=== PATIENT | female | born 1970 | race Caucasian/White ===

== ENCOUNTER 2018-07-06 10:42 | Inpatient (IN) | payer OTHER ==
[~2018-07-06] VITALS: Ht 180.3 cm; Wt 60.0 kg
[2018-07-06] MEDS ORDERED: ATILIQ PO (12:36)
[2018-07-06] MEDS ORDERED: ACET325T45 PO (12:36)
[2018-07-06] MEDS ORDERED: HYOS0.1297 SL (12:37)
[2018-07-06] MEDS ORDERED: LEVE500T8 PO (12:38)
[2018-07-06] MEDS ORDERED: DULO30CA47 PO (12:39)
[2018-07-06] MEDS ORDERED: SENN-120 PO (12:40)
[2018-07-06] MEDS ORDERED: FLUD0.1T10 PO (12:40)
[2018-07-06] MEDS ORDERED: FAMO40TA5 PO (12:42)
[2018-07-06] MEDS ORDERED: HYDR-4011 PO (12:42)
[2018-07-06] MEDS ORDERED: MORP10DI10 SL (12:44)
[2018-07-06] MEDS ORDERED: BISA10SU75 PR (12:46)
[2018-07-06] MEDS ORDERED: ONDA4TAB13 PO (12:46)
[2018-07-06] MEDS ORDERED: HYDROmorphONE 1 MG/ML SYG IV STA (13:14)
[2018-07-06] MEDS ORDERED: ONDANSETRON 4 MG INJ IV STA (13:14)
[2018-07-06] MEDS ORDERED: ACETAMINOPHEN 325 MG TAB PO PRN ×2 (13:30→16:00)
[2018-07-06] MEDS ORDERED: CEFTRIAXONE 1 GM/50 ML (PMX) 50 ML IVPB ONE (13:30)
[2018-07-06] MEDS ORDERED: ONDANSETRON 4 MG INJ IV PRN ×2 (13:30→16:00)
--- NOTE | 2018-07-06 13:44 | ERD ---
ER Documentation Chief Complaint Chief Complaint needs illeostomy bag currently nothing on the stoma HPI This is a 47-year-old female with known history of ovarian carcinoma with total abdominal hysterectomy who is undergoing chemotherapy with her clerical methods analyst oncologist at [facility] named Dr. Lui. The patient had recently been in [facility] for treatment of sepsis. The patient has an ileostomy and was discharged home with an ileostomy bag but she is currently living with her sister who indicates she does not know how to change the ileostomy site. The patient has been complaining of mild pain over the skin of the ileostomy site. She said no fevers or shaking or chills. She however has had frequency urgency and dysuria over the past several days. She had no shortness of breath. She denies a productive or nonproductive cough. The patient was in hospice which was provoked by the family as they stated they were unaware of what hospice entails. However the patient states she is DO NOT RESUSCITATE with comfort measures only. Family stated that the ileostomy was placed after the colostomy developed complications with the fistula. ROS All systems reviewed and are negative except as per history of present illness. Medications Home Meds Reported Medications Ondansetron Hcl* (Zofran*) 4 Mg Tab, 4 MG PO Q4H PRN for NAUSEA AND OR VOMITING, TAB 07/06/18 Bisacodyl* (Bisacodyl*) 10 Mg Supp, 10 MG NV Q72H PRN for NEEDED, SUPP 07/06/18 Morphine Sulfate* (Morphine* Liq) 10 Mg/0.5 Ml Disp.syrin, 0.25 ML SL Q4H PRN for NEEDED, ML 07/06/18 Hydrocodone/Acetaminophen ([place] 5-325 Tablet) 1 Each Tablet, 1 EACH PO Q4H PRN for NEEDED, TAB 07/06/18 Famotidine* (Famotidine*) 40 Mg Tablet, 40 MG PO Q7AM, #30 TAB 07/06/18 Fludrocortisone* (Fludrocortisone*) 0.1 Mg Tablet, 0.1 MG PO Q 9AM, TAB 07/06/18 Sennosides* (Senna Lax*) 8.6 Mg Tablet, 1 TAB PO BID, TAB Q 9AM & 9PM 07/06/18 Duloxetine Hcl* (Duloxetine Hcl*) 30 Mg Capsule.dr, 30 MG PO Q 9AM, #30 CAP 07/06/18 Levetiracetam* (Levetiracetam*) 500 Mg Tablet, 500 MG PO Q12H, TAB Q 9-AM & 9-PM 07/06/18 Hyoscyamine Sulfate* (Hyoscyamine Sulfate*) 0.125 Mg Tab.subl, 0.125 MG SL Q4H PRN for NEEDED, TAB 07/06/18 Lorazepam* (Ativan* Intensol) 2 Mg/Ml Soln, 0.5 MG PO Q4H PRN for ANXIETY, #1 BOTTLE 07/06/18 Acetaminophen* (Acetaminophen*) 325 Mg Tablet, 650 MG PO Q4H PRN for PAIN AND OR ELEVATED TEMP, #30 TAB 07/06/18 Allergies Allergies: Coded Allergies: No Known Allergy (Unverified , 07/06/18) Physical Exam Vitals Vital Signs Date Temp Pulse Resp B/P (MAP) Pulse Ox O2 O2 Flow FiO2 Time Delivery Rate 07/06/18 98.5 112 18 110/81 99 11:13 (91) Physical Exam Constitutional:Well-developed. Cachectic. HEENT:Normocephalic. Atraumatic.Pupils were equal round reactive to light. Very dry mucous membranes.No tonsillar exudates. Neck: No nuchal rigidity. No lymphadenopathy. No posterior cervical spine tenderness or step-offs. Respiratory: Not using accessory muscles of respiration.Lungs were clear to auscultation bilaterally. No rhonchi. No rales. No wheezing. Cardiovascular: Regular rate regular rhythm.No murmurs. No rubs were appreciated.S1, S2 normal. Distal pulses are palpable 2+ bilaterally. GI: Abdomen was soft. Colostomy site is overlying granulation tissue in the left lower quadrant. Ostomy site in the right lower quadrant is erythematous tender but no fluctuance no induration and no purulent drainage from the ostomy site.. Non Distended. No pulsatile abdominal masses or bruits. No rebound. No guarding. Bowel sounds were present and normal. Muscle skeletal: Alysis of the left upper and lower extremity from previous CVA. Full range of motion of the right upper and lower extremity. Skin: No petechia, no purpura. No lesions on the palms or the soles of the feet. No maculopapular rash. NEURO: Patient was alert, awake, orientated x3.No facial droop. Patient was too weak to ambulate.Speech had regular rate and rhythm. No focal neurological deficits. Result Diagram: 07/06/18 1215 07/06/18 1215 Results 24 hrs Laboratory Tests Test 07/06/18 12:15 White Blood Count 9.6 10^3/ul Red Blood Count 3.40 10^6/ul Hemoglobin 10.4 g/dl Hematocrit 32.2 % Mean Corpuscular Volume 94.7 fl Mean Corpuscular Hemoglobin 30.6 pg Mean Corpuscular Hemoglobin Concent 32.3 g/dl Red Cell Distribution Width 16.9 % Platelet Count 221 10^3/UL Mean Platelet Volume 10.1 fl Immature Granulocytes % 0.500 % Neutrophils % 74.0 % Lymphocytes % 12.5 % Monocytes % 9.6 % Eosinophils % 3.1 % Basophils % 0.3 % Nucleated Red Blood Cells % 0.0 /100WBC Immature Granulocytes # 0.050 10^3/ul Neutrophils # 7.1 10^3/ul Lymphocytes # 1.2 10^3/ul Monocytes # 0.9 10^3/ul Eosinophils # 0.3 10^3/ul Basophils # 0.0 10^3/ul Nucleated Red Blood Cells # 0.0 10^3/ul Prothrombin Time 12.9 Sec Prothrombin Time Ratio 1.0 INR International Normalized Ratio 0.96 Activated Partial Thromboplast Time 24.2 Sec Urine Color CYNDEE Urine Clarity CLOUDY Urine pH 5.0 Urine Specific [place] 1.018 Urine Ketones NEGATIVE mg/dL Urine Nitrite POSITIVE mg/dL Urine Bilirubin NEGATIVE mg/dL Urine Urobilinogen NEGATIVE mg/dL Urine Leukocyte Esterase 3+ Ignacia/ul Urine Microscopic RBC 23 /HPF Urine Microscopic WBC > 182 /HPF Urine Bacteria MODERATE /HPF Urine Mucus MODERATE /HPF Urine Hemoglobin 1+ mg/dL Urine Glucose NEGATIVE mg/dL Urine Total Protein 1+ mg/dl Sodium Level 138 mmol/L Potassium Level 4.3 mmol/L Chloride Level 105 mmol/L Carbon Dioxide Level 19 mmol/L Anion Gap 14 Blood Urea Nitrogen 27 mg/dl Creatinine 0.65 mg/dl Est Glomerular Filtrat Rate mL/min > 60 mL/min Glucose Level 113 mg/dl Calcium Level 11.3 mg/dl Total Bilirubin 0.7 mg/dl Direct Bilirubin 0.00 mg/dl Indirect Bilirubin 0.7 mg/dl Aspartate Amino Transf (AST/SGOT) 98 IU/L Alanine Aminotransferase (ALT/SGPT) 176 IU/L Alkaline Phosphatase 306 IU/L Troponin I < 0.012 ng/ml Total Protein 7.9 g/dl Albumin 4.3 g/dl Globulin 3.60 g/dl Albumin/Globulin Ratio 1.19 Amylase Level 56 U/L Lipase 118 U/L Current Medications Medications Dose Sig/Fritz Start Time Status Last (Trade) Ordered Route PRN Stop Time Admin Dose Reason Admin Ceftriaxone 50 ml @ ONCE ONCE 07/06/18 07/06/18 Sodium 100 mls/hr IVPB 13:30 13:22 07/06/18 13:59 1 mg ONCE STAT 07/06/18 DC 07/06/18 Hydromorphone IV 13:14 13:22 HCl 07/06/18 13:15 (Dilaudid) Ondansetron 4 mg ONCE STAT 07/06/18 DC 07/06/18 HCl (Zofran IV 13:14 13:21 Inj) 07/06/18 13:15 Procedures/MDM This is a 47-year-old female that presented to the emergency department with a history of DNR and ovarian cancer currently on chemotherapy. Patient was placed on cafeteria monitor continuous pulse oximetry and IV access was established by nursing staff. The patient was given intravenous Dilaudid and Zofran for analgesia control. I obtained a chest radiograph and there was no infiltrates no pneumothorax or pleural effusions. The patient had a urinary tract infection and was given IV ceftriaxone. The patient does have an indwelling Avalos catheter that has been present since May 24, 2018. The patient had no adriana re electrolyte abnormalities. I did obtain blood cultures and urine cultures. I obtained a CT scan with IV contrast for further evaluation into the patient's complex abdominal pain and surgical history. The patient's 2 sisters are at bedside had a lengthy discussion with the family we did state that the patient is DO NOT RESUSCITATE with comfort measures only. 12 Lead EKG tracing ordered and reviewed by myself showed: Normal sinus rhythm of 65 bpm and no arrhythmia. NV interval normal. QRS duration normal. No ST segment elevation No ST segment depression. No changes consistent with acute ischemia. The patient will be admitted to Dr. Vieira to the medical surgical floor in serious condition. I placed a consult to the wound care nurse who came to the bedside and talked the family how to properly place the ileostomy bag over the ostomy site Critical Care: Time: 45 minutes Treatments/Evaluations: Close monitoring and treatment of unstable vital signs, cardiorespiratory, and neurologic status, while maintaining tight balance of fluid, respiratory, and cardiac interventions. Time does not include performing any of the above billable procedures. Departure Diagnosis: Primary Impression: Urinary tract infection Urinary tract infection type: acute cystitis Hematuria presence: without hematuria Qualified Codes: N30.00 - Acute cystitis without hematuria Additional Impressions: Ovarian carcinoma Laterality: unspecified laterality Qualified Codes: C56.9 - Malignant neoplasm of unspecified ovary Failure to thrive Failure to thrive age range: in adult Qualified Codes: R62.7 - Adult failure to thrive Condition: Serious DIMAS MIRANDA MD Jul 06, 2018 13:43
[2018-07-06] MEDS ORDERED: DOCUSATE SODIUM 100 MG CAP PO PRN (16:00)
[2018-07-06] MEDS ORDERED: HYOSCYAMINE 0.125 MG SUBL TAB SL PRN (16:00)
[2018-07-06] MEDS ORDERED: ONDANSETRON 4 MG TAB PO PRN (16:00)
[2018-07-06] MEDS ORDERED: NACL 0.9% 3 ML SYG IV SCH (16:00)
[2018-07-06] MEDS ORDERED: ZOLPIDEM 5 MG TAB PO PRN (16:00)
[2018-07-06] MEDS ORDERED: LORAZEPAM 0.5 MG TAB PO PRN (16:00)
[2018-07-06] MEDS ORDERED: BISACODYL 10 MG SUPP PR PRN (16:00)
[2018-07-06 16:01] VITALS: BP 101/69; PULSE 110; RESP 18
[2018-07-06 16:36] VITALS: Ht 180.3 cm; Wt 60.0 kg
[2018-07-06] MEDS: SOD CHLORIDE 0.9% 1,000 ML IV SCH (16:46)
--- NOTE | 2018-07-06 17:05 | HP ---
Date/Time of Note Date/Time of Note DATE: 07/06/18 TIME: 16:59 Assessment/Plan VTE Prophylaxis Pharmacological prophylaxis: NA/contraindicated Pharm contraindication: other Lines/Catheters IV Catheter Type (from Nrsg): manju cath Assessment/Plan Hospital Course 1. Abdominal pain secondary to skin excoriation from leakage of ostomy site Wound care nurse consultation appreciated, ostomy has been adjusted and wound care recommendations will be followed Family would like to ultimately take the patient back home and would like to learn proper ostomy care from wound care nurse Pain control 2. UTI secondary to chronic Avalos catheter Empiric Rocephin Follow-up on urine culture 3. History of ovarian cancer status post SLIME/BSO Patient was receiving chemotherapy but was stopped after she had a stroke Patient was on hospice care at home and will likely return to home with hospice 4. History of CVA No acute issues 5. Normocytic anemia likely secondary chronic disease monitor 6. Transaminitis Monitor Prophylaxis: No Lovenox or heparin secondary to skin excoriations in the abdomen Result Diagram: 07/06/18 1215 07/06/18 1215 Results 24hrs Laboratory Tests Test 07/06/18 12:15 White Blood Count 9.6 Red Blood Count 3.40 L Hemoglobin 10.4 L Hematocrit 32.2 L Mean Corpuscular Volume 94.7 Mean Corpuscular Hemoglobin 30.6 Mean Corpuscular Hemoglobin Concent 32.3 Red Cell Distribution Width 16.9 H Platelet Count 221 Mean Platelet Volume 10.1 Immature Granulocytes % 0.500 H Neutrophils % 74.0 Lymphocytes % 12.5 L Monocytes % 9.6 Eosinophils % 3.1 Basophils % 0.3 Nucleated Red Blood Cells % 0.0 Immature Granulocytes # 0.050 H Neutrophils # 7.1 Lymphocytes # 1.2 Monocytes # 0.9 Eosinophils # 0.3 Basophils # 0.0 Nucleated Red Blood Cells # 0.0 Prothrombin Time 12.9 Prothrombin Time Ratio 1.0 INR International Normalized Ratio 0.96 Activated Partial Thromboplast Time 24.2 Urine Color CYNDEE Urine Clarity CLOUDY A Urine pH 5.0 Urine Specific [place] 1.018 Urine Ketones NEGATIVE Urine Nitrite POSITIVE A Urine Bilirubin NEGATIVE Urine Urobilinogen NEGATIVE Urine Leukocyte Esterase 3+ H Urine Microscopic RBC 23 H Urine Microscopic WBC > 182 H Urine Bacteria MODERATE Urine Mucus MODERATE Urine Hemoglobin 1+ H Urine Glucose NEGATIVE Urine Total Protein 1+ H Sodium Level 138 Potassium Level 4.3 Chloride Level 105 Carbon Dioxide Level 19 L Anion Gap 14 H Blood Urea Nitrogen 27 H Creatinine 0.65 Est Glomerular Filtrat Rate mL/min > 60 Glucose Level 113 Calcium Level 11.3 H Total Bilirubin 0.7 Direct Bilirubin 0.00 Indirect Bilirubin 0.7 Aspartate Amino Transf (AST/SGOT) 98 H Alanine Aminotransferase (ALT/SGPT) 176 H Alkaline Phosphatase 306 H Troponin I < 0.012 Total Protein 7.9 Albumin 4.3 Globulin 3.60 H Albumin/Globulin Ratio 1.19 Amylase Level 56 Lipase 118 HPI/ROS Admit Date/Time Admit Date/Time Jul 06, 2018 at 16:25 Hx of Present Illness Patient is a 47-year-old female with history of ovarian cancer status post SLIME/BSO as well as chemotherapy which was stopped after patient had a CVA. 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 Patient was recently discharged home with hospice care but patient had significant leakage around the ostomy with excoriation of the skin. Patient was brought in after patient reported significant pain of the skin. Patient does have a chronic Avalos catheter UA is positive. Patient denies any fevers or chills, most history is obtained from patient sister who is bedside. KATIE Poor historian PMH/Family/Social Past Medical History Ovarian cancer, CVA Medications Current Medications Sodium Chloride 1,000 ml @ 100 mls/hr Q10H IV Last administered on 07/06/18at 16:46; Admin Dose 100 MLS/HR; Start 07/06/18 at 15:59 IV Flush (NS 3 ml) 3 ml PER PROTOCOL IV ; Start 07/06/18 at 16:00 Ondansetron HCl (Zofran Inj) 4 mg Q6H PRN IV NAUSEA/VOMITING; Start 07/06/18 at 16:00 Acetaminophen (Tylenol Tab) 650 mg Q6H PRN PO .PAIN 1-3 OR TEMP; Start 07/06/18 at 16:00 Acetaminophen/ Hydrocodone Bitart ([place] (5/325)) 1 tab Q6H PRN PO .MOD PAIN 4- 6; Start 07/06/18 at 16:00 Morphine Sulfate (morphine) 2 mg Q4H PRN IV .SEVERE PAIN 7-10; Start 07/06/18 at 16:00 Docusate Sodium (Colace) 100 mg Q12H PRN PO .CONSTIPATION; Start 07/06/18 at 16:00 Zolpidem Tartrate (Ambien) 5 mg QHS PRN PO .INSOMNIA; Start 07/06/18 at 16:00 Enoxaparin Sodium (Lovenox) 40 mg DAILY SC ; Start 07/07/18 at 09:00 Ceftriaxone Sodium 50 ml @ 100 mls/hr Q24H IVPB ; Start 07/06/18 at 16:00 Bisacodyl (Dulcolax Supp) 10 mg Q72H PRN IN NEEDED; Start 07/06/18 at 16:00 Duloxetine HCl (Cymbalta) 30 mg DAILY PO ; Start 07/07/18 at 09:00 Famotidine (Pepcid) 40 mg DAILY PO ; Start 07/07/18 at 09:00 Fludrocortisone Acetate (Florinef) 0.1 mg DAILY PO ; Start 07/07/18 at 09:00 Hyoscyamine (Levsin (Sl)) 0.125 mg Q4H PRN SL NEEDED; Start 07/06/18 at 16:00 Levetiracetam (Keppra) 500 mg Q12 PO ; Start 07/06/18 at 17:00 Lorazepam (Ativan) 0.5 mg Q4H PRN PO ANXIETY; Start 07/06/18 at 16:00 Ondansetron HCl (Zofran Tab) 4 mg Q4H PRN PO NAUSEA AND/OR VOMITING; Start 07/06/18 at 16:00 Senna (Senokot) 1 tab BID PO ; Start 07/06/18 at 21:00 Coded Allergies: No Known Allergy (Unverified , 07/06/18) Past Surgical History SLIME/BSO, ileostomy after colovaginal fistula Family History Significant Family History: no pertinent family hx Social History Alcohol Use: none Smoking Status: Never smoker Drug Use: none Exam/Review of Systems Vital Signs Vitals Vital Signs Date Temp Pulse Resp B/P (MAP) Pulse Ox O2 O2 Flow FiO2 Time Delivery Rate 07/06/18 98.0 110 18 101/69 95 16:01 (80) 07/06/18 Room Air 14:21 Exam Constitutional: alert Respiratory: clear to auscultation Cardiovascular: regular rate and rhythm Gastrointestinal: soft; No distended Musculoskeletal: nl extremities to inspection Skin: other (Excoriation around the ostomy site) KILO LONG Jul 06, 2018 17:05
[2018-07-06] MEDS: CEFTRIAXONE 1 GM/50 ML (PMX) 50 ML IVPB SCH (17:14)
[2018-07-06] MEDS: LEVETIRACETAM 500 MG TAB PO SCH (17:15)
[2018-07-06] MEDS: morphine 2 MG INJ IV PRN ×2 (17:15→21:34)
[2018-07-06 19:54] VITALS: BP 102/65; PULSE 99; RESP 20
[2018-07-06] MEDS: SENNA TAB PO SCH (20:44)
[2018-07-06] MEDS: HYDROCODONE/APAP (5/325) TAB PO PRN (20:45)
[2018-07-06] MEDS: NYSTATIN 30 GM POWDER BTL TOP SCH (20:45)
[2018-07-07 01:55] VITALS: BP 100/68; PULSE 88; RESP 17
[2018-07-07] MEDS: SOD CHLORIDE 0.9% 1,000 ML IV SCH ×3 (03:39→21:59)
[2018-07-07] MEDS: morphine 2 MG INJ IV PRN ×4 (04:43→19:31)
[2018-07-07] MEDS ORDERED: MAGNESIUM SULFATE 4 GM/100 ML 100 ML IVPB ONE ×2 (07:00→11:00)
[2018-07-07 07:13] VITALS: BP 112/67; PULSE 77; RESP 18
[2018-07-07] MEDS: SENNA TAB PO SCH ×2 (08:26→20:14)
[2018-07-07] MEDS: FLUDROCORTISONE 0.1 MG TAB PO SCH (08:26)
[2018-07-07] MEDS: DULOXETINE 30 MG CAP DR PO SCH (08:26)
[2018-07-07] MEDS: FAMOTIDINE 20 MG TAB PO SCH (08:26)
[2018-07-07] MEDS: LEVETIRACETAM 500 MG TAB PO SCH ×2 (08:26→20:14)
[2018-07-07] MEDS: NYSTATIN 30 GM POWDER BTL TOP SCH ×2 (08:30→20:15)
[2018-07-07] MEDS ORDERED: ENOXAPARIN 40 MG/0.4 ML SYG SC SCH (09:00)
[2018-07-07] MEDS: HYDROCODONE/APAP (5/325) TAB PO PRN ×2 (11:40→21:41)
--- NOTE | 2018-07-07 12:25 | PN ---
Date/Time of Note Date/Time of Note DATE: 07/07/18 TIME: 12:23 Assessment/Plan VTE Prophylaxis Risk score (from Ns)>0 risk: 5 SCD applied (from Ns): Yes Pharmacological prophylaxis: NA/contraindicated Pharm contraindication: other Lines/Catheters [facility]from [facility]a-cath Assessment/Plan Hospital Course 1. Abdominal pain secondary to cellulitis and skin excoriation from leakage of ostomy site Wound care nurse consultation appreciated, ostomy has been adjusted and wound care recommendations will be followed Family would like to ultimately take the patient back home and would like to learn proper ostomy care from wound care nurse Pain control 2. UTI secondary to chronic Avalos catheter Empiric Rocephin Follow-up on urine culture 3. History of ovarian cancer status post SLIME/BSO Patient was receiving chemotherapy but was stopped after she had a stroke Patient was on hospice care at home and will likely return to home with hospice 4. History of CVA No acute issues 5. Normocytic anemia likely secondary chronic disease monitor 6. Transaminitis Monitor Prophylaxis: No Lovenox or heparin secondary to skin excoriations in the abdomen Result Diagram: 07/07/18 0439 07/07/18 0439 Results 24hrs Laboratory Tests Test 07/07/18 04:39 White Blood Count 7.6 # Red Blood Count 3.16 L Hemoglobin 9.6 L Hematocrit 29.6 L Mean Corpuscular Volume 93.7 Mean Corpuscular Hemoglobin 30.4 Mean Corpuscular Hemoglobin Concent 32.4 Red Cell Distribution Width 16.4 H Platelet Count 196 Mean Platelet Volume 10.2 Immature Granulocytes % 0.500 H Neutrophils % 63.3 Lymphocytes % 18.2 Monocytes % 11.3 H Eosinophils % 6.3 Basophils % 0.4 Nucleated Red Blood Cells % 0.0 Immature Granulocytes # 0.040 H Neutrophils # 4.8 Lymphocytes # 1.4 Monocytes # 0.9 Eosinophils # 0.5 Basophils # 0.0 Nucleated Red Blood Cells # 0.0 Sodium Level 137 Potassium Level 3.8 Chloride Level 105 Carbon Dioxide Level 20 L Anion Gap 12 Blood Urea Nitrogen 24 H Creatinine 0.51 Est Glomerular Filtrat Rate mL/min > 60 Glucose Level 100 Hemoglobin A1c 4.6 Calcium Level 10.6 H Phosphorus Level 4.0 Magnesium Level 0.9 *L Total Bilirubin 0.4 Direct Bilirubin 0.00 Indirect Bilirubin 0.4 Aspartate Amino Transf (AST/SGOT) 93 H Alanine Aminotransferase (ALT/SGPT) 182 H Alkaline Phosphatase 253 H Total Protein 7.3 Albumin 3.7 Globulin 3.60 H Albumin/Globulin Ratio 1.02 Subjective 24 Hr Interval Summary Gastrointestinal: pain Exam/Review of Systems Exam Vitals Vital Signs Date Temp Pulse Resp B/P (MAP) Pulse Ox O2 O2 Flow FiO2 Time Delivery Rate 07/07/18 98.1 77 18 112/67 98 07:13 (82) 07/06/18 Room Air 14:21 Intake and Output 07/06/18 07/06/18 07/07/18 1515:00 23:00 07:00 IntakeIntake Total 150 ml 1100 ml OutputOutput Total 700 ml 180 ml BalanceBalance -550 ml 920 ml Constitutional: alert Respiratory: clear to auscultation Cardiovascular: regular rate and rhythm Gastrointestinal: soft; No distended Musculoskeletal: nl extremities to inspection Results Results 24hrs Laboratory Tests Test 07/07/18 04:39 White Blood Count 7.6 # Red Blood Count 3.16 L Hemoglobin 9.6 L Hematocrit 29.6 L Mean Corpuscular Volume 93.7 Mean Corpuscular Hemoglobin 30.4 Mean Corpuscular Hemoglobin Concent 32.4 Red Cell Distribution Width 16.4 H Platelet Count 196 Mean Platelet Volume 10.2 Immature Granulocytes % 0.500 H Neutrophils % 63.3 Lymphocytes % 18.2 Monocytes % 11.3 H Eosinophils % 6.3 Basophils % 0.4 Nucleated Red Blood Cells % 0.0 Immature Granulocytes # 0.040 H Neutrophils # 4.8 Lymphocytes # 1.4 Monocytes # 0.9 Eosinophils # 0.5 Basophils # 0.0 Nucleated Red Blood Cells # 0.0 Sodium Level 137 Potassium Level 3.8 Chloride Level 105 Carbon Dioxide Level 20 L Anion Gap 12 Blood Urea Nitrogen 24 H Creatinine 0.51 Est Glomerular Filtrat Rate mL/min > 60 Glucose Level 100 Hemoglobin A1c 4.6 Calcium Level 10.6 H Phosphorus Level 4.0 Magnesium Level 0.9 *L Total Bilirubin 0.4 Direct Bilirubin 0.00 Indirect Bilirubin 0.4 Aspartate Amino Transf (AST/SGOT) 93 H Alanine Aminotransferase (ALT/SGPT) 182 H Alkaline Phosphatase 253 H Total Protein 7.3 Albumin 3.7 Globulin 3.60 H Albumin/Globulin Ratio 1.02 Medications Medication Current Medications Sodium Chloride 1,000 ml @ 100 mls/hr Q10H IV Last administered on 07/07/18at 03:39; Admin Dose 100 MLS/HR; Start 07/06/18 at 15:59 IV Flush (NS 3 ml) 3 ml PER PROTOCOL IV ; Start 07/06/18 at 16:00 Ondansetron HCl (Zofran Inj) 4 mg Q6H PRN IV NAUSEA/VOMITING; Start 07/06/18 at 16:00 Acetaminophen (Tylenol Tab) 650 mg Q6H PRN PO .PAIN 1-3 OR TEMP; Start 07/06/18 at 16:00 Acetaminophen/ Hydrocodone Bitart ([place] (5/325)) 1 tab Q6H PRN PO .MOD PAIN 4- 6 Last administered on 07/07/18at 11:40; Admin Dose 1 TAB; Start 07/06/18 at 16:00 Morphine Sulfate (morphine) 2 mg Q4H PRN IV .SEVERE PAIN 7-10 Last administered on 07/07/18at 10:17; Admin Dose 2 MG; Start 07/06/18 at 16:00 Docusate Sodium (Colace) 100 mg Q12H PRN PO .CONSTIPATION; Start 07/06/18 at 16:00 Zolpidem Tartrate (Ambien) 5 mg QHS PRN PO .INSOMNIA; Start 07/06/18 at 16:00 Ceftriaxone Sodium 50 ml @ 100 mls/hr Q24H IVPB Last administered on 07/06/18at 17:14; Admin Dose 100 MLS/HR; Start 07/06/18 at 16:00 Bisacodyl (Dulcolax Supp) 10 mg Q72H PRN [place] NEEDED; Start 07/06/18 at 16:00 Duloxetine HCl (Cymbalta) 30 mg DAILY PO Last administered on 07/07/18 08:26; Admin Dose 30 MG; Start 07/07/18 at 09:00 Famotidine (Pepcid) 40 mg DAILY PO Last administered on 07/07/18 08:26; Admin Dose 40 MG; Start 07/07/18 at 09:00 Fludrocortisone Acetate (Florinef) 0.1 mg DAILY PO Last administered on 07/07/18 08:26; Admin Dose 0.1 MG; Start 07/07/18 at 09:00 Hyoscyamine (Levsin (Sl)) 0.125 mg Q4H PRN SL NEEDED; Start 07/06/18 at 16:00 Levetiracetam (Keppra) 500 mg Q12 PO Last administered on 07/07/18at 08:26; Admin Dose 500 MG; Start 07/06/18 at 17:00 Lorazepam (Ativan) 0.5 mg Q4H PRN PO ANXIETY; Start 07/06/18 at 16:00 Ondansetron HCl (Zofran Tab) 4 mg Q4H PRN PO NAUSEA AND/OR VOMITING; Start 07/06/18 at 16:00 Senna (Senokot) 1 tab BID PO Last administered on 07/07/18at 08:26; Admin Dose 1 TAB; Start 07/06/18 at 21:00 Nystatin (Nystatin Powder) 1 applic BID TOP Last administered on 07/07/18at 08:30; Admin Dose 1 APPLIC; Start 07/06/18 at 21:00 Magnesium Sulfate 100 ml @ 25 mls/hr ONCE ONCE IVPB ; Start 07/07/18 at 11:00; Stop 07/07/18 at 14:59 KILO LONG Jul 07, 2018 12:25
[2018-07-07 13:15] VITALS: BP 107/64; PULSE 80; RESP 18
[2018-07-07] MEDS: CEFTRIAXONE 1 GM/50 ML (PMX) 50 ML IVPB SCH (16:33)
[2018-07-07 20:30] VITALS: BP 110/66; PULSE 82; RESP 19
[2018-07-07] MEDS ORDERED: DIPHENHYDRAMINE 25 MG CAP PO PRN (21:30)
[2018-07-08] MEDS: morphine 2 MG INJ IV PRN ×4 (01:31→20:10)
[2018-07-08] MEDS: SOD CHLORIDE 0.9% 1,000 ML IV SCH ×3 (01:32→12:06)
[2018-07-08 02:35] VITALS: BP 101/65; PULSE 80; RESP 18
[2018-07-08 07:33] VITALS: BP 104/68; PULSE 82; RESP 18
[2018-07-08] MEDS: LEVETIRACETAM 500 MG TAB PO SCH ×2 (09:03→20:10)
[2018-07-08] MEDS: DULOXETINE 30 MG CAP DR PO SCH (09:03)
[2018-07-08] MEDS: SENNA TAB PO SCH ×2 (09:03→20:10)
[2018-07-08] MEDS: FLUDROCORTISONE 0.1 MG TAB PO SCH (09:03)
[2018-07-08] MEDS: FAMOTIDINE 20 MG TAB PO SCH (09:03)
[2018-07-08] MEDS: NYSTATIN 30 GM POWDER BTL TOP SCH ×2 (09:04→19:54)
[2018-07-08 14:00] VITALS: BP 106/66; PULSE 80; RESP 18
[2018-07-08] MEDS: CEFTRIAXONE 1 GM/50 ML (PMX) 50 ML IVPB SCH (16:35)
[2018-07-08] MEDS: HYDROCODONE/APAP (5/325) TAB PO PRN (16:37)
--- NOTE | 2018-07-08 17:20 | PN ---
Date/Time of Note Date/Time of Note DATE: 07/08/18 TIME: 17:14 Assessment/Plan VTE Prophylaxis Risk score (from Ns)>0 risk: 8 SCD applied (from Ns): Yes Pharmacological prophylaxis: NA/contraindicated Pharm contraindication: other Assessment/Plan Hospital Course 1. Abdominal pain secondary to cellulitis and skin excoriation from leakage of ileostomy site Wound care nurse consultation appreciated, ostomy has been adjusted and wound care recommendations will be followed Family would like to ultimately take the patient back home and would like to learn proper ostomy care from wound care nurse Wound care nurse Ángela to be back on Monday to give further guidance of ostomy care to patient's sisters Ileostomy was just done 2 weeks ago and family was unable to manage at home Pain control 2. UTI secondary to chronic Avalos catheter Continue Rocephin Urine culture noted 3. History of ovarian cancer status post SLIME/BSO Patient was receiving chemotherapy but was stopped after she had a stroke Family would like to continue chemotherapy and will follow-up with outpatient oncologist 4. History of CVA No acute issues 5. 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 Transaminitis Monitor 7. Normocytic anemia likely secondary chronic disease monitor Prophylaxis: No Lovenox or heparin secondary to skin excoriations in the abdomen DC planning: Family would like to speak to the wound care nurse Ángela for advice on proper ostomy care, anticipate DC to home Monday evening or Monday Result Diagram: 07/07/18 0439 07/07/189 Results 24hrs Laboratory Tests Test 07/07/18 20:24 Magnesium Level 3.1 #H Subjective 24 Hr Interval Summary Constitutional: no complaints Exam/Review of Systems Exam Vitals Vital Signs Date Temp Pulse Resp B/P (MAP) Pulse Ox O2 O2 Flow FiO2 Time Delivery Rate 07/08/18 98.0 82 18 104/68 94 Room Air 07:33 (80) Intake and Output 07/07/18 07/07/18 07/08/18 1414:59 22:59 06:59 IntakeIntake Total 100 ml 450 ml 850 ml OutputOutput Total 500 ml BalanceBalance 100 ml 450 ml 350 ml Constitutional: alert, oriented Respiratory: clear to auscultation Cardiovascular: regular rate and rhythm Gastrointestinal: soft; No distended Musculoskeletal: nl extremities to inspection Results Results 24hrs Laboratory Tests Test 07/07/18 20:24 Magnesium Level 3.1 #H Medications Medication Current Medications Sodium Chloride 1,000 ml @ 100 mls/hr Q10H IV Last administered on 07/08/18at 12:06; Admin Dose 100 MLS/HR; Start 07/06/18 at 15:59 IV Flush (NS 3 ml) 3 ml PER PROTOCOL IV ; Start 07/06/18 at 16:00 Ondansetron HCl (Zofran Inj) 4 mg Q6H PRN IV NAUSEA/VOMITING; Start 07/06/18 at 16:00 Acetaminophen (Tylenol Tab) 650 mg Q6H PRN PO .PAIN 1-3 OR TEMP; Start 07/06/18 at 16:00 Acetaminophen/ Hydrocodone Bitart ([place] (5/325)) 1 tab Q6H PRN PO .MOD PAIN 4- 6 Last administered on 07/08/18at 16:37; Admin Dose 1 TAB; Start 07/06/18 at 16:00 Morphine Sulfate (morphine) 2 mg Q4H PRN IV .SEVERE PAIN 7-10 Last administered on 07/08/18 14:29; Admin Dose 2 MG; Start 07/06/18 at 16:00 Docusate Sodium (Colace) 100 mg Q12H PRN PO .CONSTIPATION; Start 07/06/18 at 16:00 Zolpidem Tartrate (Ambien) 5 mg QHS PRN PO .INSOMNIA; Start 07/06/18 at 16:00 Ceftriaxone Sodium 50 ml @ 100 mls/hr Q24H IVPB Last administered on 07/08/18 16:35; Admin Dose 100 MLS/HR; Start 07/06/18 at 16:00 Bisacodyl (Dulcolax Supp) 10 mg Q72H PRN [place] NEEDED; Start 07/06/18 at 16:00 Duloxetine HCl (Cymbalta) 30 mg DAILY PO Last administered on 07/08/18 09:03; Admin Dose 30 MG; Start 07/07/18 at 09:00 Famotidine (Pepcid) 40 mg DAILY PO Last administered on 07/08/18 09:03; Admin Dose 40 MG; Start 07/07/18 at 09:00 Fludrocortisone Acetate (Florinef) 0.1 mg DAILY PO Last administered on 07/08/18 09:03; Admin Dose 0.1 MG; Start 07/07/18 at 09:00 Hyoscyamine (Levsin (Sl)) 0.125 mg Q4H PRN SL NEEDED; Start 07/06/18 at 16:00 Levetiracetam (Keppra) 500 mg Q12 PO Last administered on 07/08/18 09:03; Admin Dose 500 MG; Start 07/06/18 at 17:00 Lorazepam (Ativan) 0.5 mg Q4H PRN PO ANXIETY; Start 07/06/18 at 16:00 Ondansetron HCl (Zofran Tab) 4 mg Q4H PRN PO NAUSEA AND/OR VOMITING; Start 07/06/18 at 16:00 Senna (Senokot) 1 tab BID PO Last administered on 07/08/18 09:03; Admin Dose 1 TAB; Start 07/06/18 at 21:00 Nystatin (Nystatin Powder) 1 applic BID TOP Last administered on 07/08/18 09:04; Admin Dose 1 APPLIC; Start 07/06/18 at 21:00 Diphenhydramine HCl (Benadryl) 25 mg Q6H PRN PO ITCHING Last administered on 07/07/18 21:38; Admin Dose 25 MG; Start 07/07/18 at 21:30; Stop 07/08/18 at 21:30 KILO LONG Jul 08, 2018 17:20
[2018-07-08 19:17] VITALS: BP 103/64; PULSE 83; RESP 16
[2018-07-09] MEDS: morphine 2 MG INJ IV PRN ×4 (00:13→18:44)
[2018-07-09] MEDS: SOD CHLORIDE 0.9% 1,000 ML IV SCH ×2 (00:13→09:32)
[2018-07-09 01:42] VITALS: BP 102/63; PULSE 82; RESP 16
[2018-07-09 07:59] VITALS: BP 110/57; PULSE 78; RESP 18
[2018-07-09] MEDS: DULOXETINE 30 MG CAP DR PO SCH (09:25)
[2018-07-09] MEDS: FLUDROCORTISONE 0.1 MG TAB PO SCH (09:25)
[2018-07-09] MEDS: FAMOTIDINE 20 MG TAB PO SCH (09:27)
[2018-07-09] MEDS: LEVETIRACETAM 500 MG TAB PO SCH ×2 (09:28→20:14)
[2018-07-09] MEDS: SENNA TAB PO SCH ×2 (09:28→20:14)
[2018-07-09] MEDS: HYDROCODONE/APAP (5/325) TAB PO PRN (09:30)
[2018-07-09] MEDS: NYSTATIN 30 GM POWDER BTL TOP SCH ×2 (13:25→20:15)
--- NOTE | 2018-07-09 13:57 | PN ---
Date/Time of Note Date/Time of Note DATE: 07/09/18 TIME: 13:55 Assessment/Plan VTE Prophylaxis Risk score (from Nsg)>0 risk: 3 SCD applied (from Nsg): Yes Pharmacological prophylaxis: heparin Lines/Catheters IV Catheter Type (from Nrsg): port Urinary Cath still in place: Yes Reason Cath still needed: urinary retention Assessment/Plan Hospital Course 1. Abdominal pain secondary to skin excoriation from leakage of ileostomy site Wound care nurse consultation appreciated, ostomy has been adjusted and wound care recommendations will be followed Family would like to ultimately take the patient back home and would like to learn proper ostomy care from wound care nurse Wound care nurse Ángela to give further guidance of ostomy care to patient's sisters Ileostomy was just done 2 weeks ago and family was unable to manage at home Pain control 2. UTI secondary to chronic Avalos catheter s/p Rocephin Urine culture noted 3. History of ovarian cancer status post SLIME/BSO Patient was receiving chemotherapy but was stopped after she had a stroke Family would like to continue chemotherapy and will follow-up with outpatient oncologist 4. History of CVA No acute issues 5. 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 Transaminitis Monitor 7. Normocytic anemia likely secondary chronic disease monitor Prophylaxis: No Lovenox or heparin secondary to skin excoriations in the abdomen DC planning: Family would like to speak to the wound care nurse Ángela for advice on proper ostomy care, anticipate DC to home Monday evening or Monday Result Diagram: 07/07/18 0439 07/07/18 0439 Subjective 24 Hr Interval Summary Free Text/Dictation Still tremendous pain from skin excoriation around ostomy Exam/Review of Systems Exam Vitals Vital Signs Date Temp Pulse Resp B/P (MAP) Pulse Ox O2 O2 Flow FiO2 Time Delivery Rate 07/09/18 97.8 78 18 110/57 96 Room Air 07:59 (74) Intake and Output 07/08/18 07/08/18 07/09/18 1515:00 23:00 07:00 IntakeIntake Total 1200 ml 600 ml 1100 ml OutputOutput Total 550 ml 1000 ml BalanceBalance 1200 ml 50 ml 100 ml Exam Alert orteinted Calm Cachectic Ostomy sites with skin excoriations Medications Medication Current Medications IV Flush (NS 3 ml) 3 ml PER PROTOCOL IV ; Start 07/06/18 at 16:00 Ondansetron HCl (Zofran Inj) 4 mg Q6H PRN IV NAUSEA/VOMITING; Start 07/06/18 at 16:00 Acetaminophen (Tylenol Tab) 650 mg Q6H PRN PO .PAIN 1-3 OR TEMP Last administered on 07/09/18at 12:02; Admin Dose 650 MG; Start 07/06/18 at 16:00 Acetaminophen/ Hydrocodone Bitart ([place] (5/325)) 1 tab Q6H PRN PO .MOD PAIN 4- 6 Last administered on 07/09/18 09:30; Admin Dose 1 TAB; Start 07/06/18 at 16:00 Morphine Sulfate (morphine) 2 mg Q4H PRN IV .SEVERE PAIN 7-10 Last administered on 07/09/18at 13:11; Admin Dose 2 MG; Start 07/06/18 at 16:00 Docusate Sodium (Colace) 100 mg Q12H PRN PO .CONSTIPATION; Start 07/06/18 at 16:00 Zolpidem Tartrate (Ambien) 5 mg QHS PRN PO .INSOMNIA; Start 07/06/18 at 16:00 Bisacodyl (Dulcolax Supp) 10 mg Q72H PRN [place] NEEDED; Start 07/06/18 at 16:00 Duloxetine HCl (Cymbalta) 30 mg DAILY PO Last administered on 07/09/18 09:25; Admin Dose 30 MG; Start 07/07/18 at 09:00 Famotidine (Pepcid) 40 mg DAILY PO Last administered on 07/09/18 09:27; Admin Dose 40 MG; Start 07/07/18 at 09:00 Fludrocortisone Acetate (Florinef) 0.1 mg DAILY PO Last administered on 07/09/18 09:25; Admin Dose 0.1 MG; Start 07/07/18 at 09:00 Hyoscyamine (Levsin (Sl)) 0.125 mg Q4H PRN SL NEEDED; Start 07/06/18 at 16:00 Levetiracetam (Keppra) 500 mg Q12 PO Last administered on 07/09/18 09:28; Admin Dose 500 MG; Start 07/06/18 at 17:00 Lorazepam (Ativan) 0.5 mg Q4H PRN PO ANXIETY Last administered on 07/09/18 12:02; Admin Dose 0.5 MG; Start 07/06/18 at 16:00 Ondansetron HCl (Zofran Tab) 4 mg Q4H PRN PO NAUSEA AND/OR VOMITING; Start 07/06/18 at 16:00 Senna (Senokot) 1 tab BID PO Last administered on 07/09/18 09:28; Admin Dose 1 TAB; Start 07/06/18 at 21:00 Nystatin (Nystatin Powder) 1 applic BID TOP Last administered on 07/09/18 13:25 ; Admin Dose 1 APPLIC; Start 07/06/18 at 21:00 LASHANDA FORTUNE MD Jul 09, 2018 13:57
[2018-07-09 14:00] VITALS: BP 108/60; PULSE 72; RESP 18
[2018-07-09 19:36] VITALS: BP 107/65; PULSE 94; RESP 16
[2018-07-09] MEDS: DIPHENHYDRAMINE 50 MG CAP PO PRN (20:14)
[2018-07-10 01:47] VITALS: BP 118/57; PULSE 97; RESP 16
[2018-07-10 08:12] VITALS: BP 120/60; PULSE 92; RESP 18
[2018-07-10] MEDS: DULOXETINE 30 MG CAP DR PO SCH (09:03)
[2018-07-10] MEDS: FLUDROCORTISONE 0.1 MG TAB PO SCH (09:04)
[2018-07-10] MEDS: LEVETIRACETAM 500 MG TAB PO SCH ×2 (09:04→20:15)
[2018-07-10] MEDS: FAMOTIDINE 20 MG TAB PO SCH (09:04)
[2018-07-10] MEDS: SENNA TAB PO SCH ×2 (09:05→20:15)
[2018-07-10] MEDS: DIPHENHYDRAMINE 50 MG CAP PO PRN ×2 (09:13→18:11)
[2018-07-10] MEDS: NYSTATIN 30 GM POWDER BTL TOP SCH ×2 (09:52→20:20)
[2018-07-10 14:52] VITALS: BP 109/61; PULSE 61; RESP 18
--- NOTE | 2018-07-10 16:53 | PN ---
Date/Time of Note Date/Time of Note DATE: 07/10/18 TIME: 16:52 Assessment/Plan VTE Prophylaxis Risk score (from Nsg)>0 risk: 4 SCD applied (from Nsg): Yes Pharmacological prophylaxis: heparin Lines/Catheters IV Catheter Type (from Nrsg): PORT A CATH Urinary Cath still in place: Yes Reason Cath still needed: urinary retention Assessment/Plan Hospital Course 1. Abdominal pain secondary to skin excoriation from leakage of ileostomy site Wound care nurse consultation appreciated, ostomy has been adjusted and wound care recommendations will be followed Family would like to ultimately take the patient back home and would like to learn proper ostomy care from wound care nurse Wound care nurse Ángela to give further guidance of ostomy care to patient's sisters Ileostomy was just done 2 weeks ago and family was unable to manage at home Pain control 2. UTI secondary to chronic Avalos catheter s/p Rocephin Urine culture noted 3. History of ovarian cancer status post SLIME/BSO Patient was receiving chemotherapy but was stopped after she had a stroke Family would like to continue chemotherapy and will follow-up with outpatient oncologist 4. History of CVA No acute issues 5. 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 Transaminitis Monitor 7. Normocytic anemia likely secondary chronic disease monitor Prophylaxis: No Lovenox or heparin secondary to skin excoriations in the abdomen DC planning: Family would like to speak to the wound care nurse Ángela for advice on proper ostomy care, anticipate DC to home Monday evening or Monday Result Diagram: 07/07/18 0439 07/07/189 Subjective 24 Hr Interval Summary Free Text/Dictation Pain improved a bit Ostomy care provided, skin care provided I discussed patient's unfortunate case at length with her sisters Exam/Review of Systems Exam Vitals Vital Signs Date Temp Pulse Resp B/P (MAP) Pulse Ox O2 O2 Flow FiO2 Time Delivery Rate 07/10/18 98.0 61 18 109/61 98 Room Air 14:52 (77) Intake and Output 07/09/18 07/09/18 07/10/18 1414:59 22:59 06:59 IntakeIntake Total 570 ml 220 ml 240 ml OutputOutput Total 40 ml 1550 ml 650 ml BalanceBalance 530 ml -1330 ml -410 ml Medications Medication Current Medications IV Flush (NS 3 ml) 3 ml PER PROTOCOL IV ; Start 07/06/18 at 16:00 Ondansetron HCl (Zofran Inj) 4 mg Q6H PRN IV NAUSEA/VOMITING; Start 07/06/18 at 16:00 Acetaminophen (Tylenol Tab) 650 mg Q6H PRN PO .PAIN 1-3 OR TEMP Last administer ed on 07/09/18at 12:02; Admin Dose 650 MG; Start 07/06/18 at 16:00 Acetaminophen/ Hydrocodone Bitart ([place] (5/325)) 1 tab Q6H PRN PO .MOD PAIN 4- 6 Last administered on 07/09/18 09:30; Admin Dose 1 TAB; Start 07/06/18 at 16:00 Morphine Sulfate (morphine) 2 mg Q4H PRN IV .SEVERE PAIN 7-10 Last administered on 07/09/18at 18:44; Admin Dose 2 MG; Start 07/06/18 at 16:00 Docusate Sodium (Colace) 100 mg Q12H PRN PO .CONSTIPATION; Start 07/06/18 at 16:00 Zolpidem Tartrate (Ambien) 5 mg QHS PRN PO .INSOMNIA; Start 07/06/18 at 16:00 Bisacodyl (Dulcolax Supp) 10 mg Q72H PRN [place] NEEDED; Start 07/06/18 at 16:00 Duloxetine HCl (Cymbalta) 30 mg DAILY PO Last administered on 07/10/18 09:03; Admin Dose 30 MG; Start 07/07/18 at 09:00 Famotidine (Pepcid) 40 mg DAILY PO Last administered on 07/10/18 09:04; Admin Dose 40 MG; Start 07/07/18 at 09:00 Fludrocortisone Acetate (Florinef) 0.1 mg DAILY PO Last administered on 07/10/18 09:04; Admin Dose 0.1 MG; Start 07/07/18 at 09:00 Hyoscyamine (Levsin (Sl)) 0.125 mg Q4H PRN SL NEEDED; Start 07/06/18 at 16:00 Levetiracetam (Keppra) 500 mg Q12 PO Last administered on 07/10/18 09:04; Admin Dose 500 MG; Start 07/06/18 at 17:00 Lorazepam (Ativan) 0.5 mg Q4H PRN PO ANXIETY Last administered on 07/09/18 12:02; Admin Dose 0.5 MG; Start 07/06/18 at 16:00 Ondansetron HCl (Zofran Tab) 4 mg Q4H PRN PO NAUSEA AND/OR VOMITING; Start 07/06/18 at 16:00 Senna (Senokot) 1 tab BID PO Last administered on 07/10/18 09:05; Admin Dose 1 TAB; Start 07/06/18 at 21:00 Nystatin (Nystatin Powder) 1 applic BID TOP Last administered on 07/10/18 09:52; Admin Dose 1 APPLIC; Start 07/06/18 at 21:00 Diphenhydramine HCl (Benadryl) 50 mg Q6H PRN PO ITCHING Last administered on 07/10/18 09:13; Admin Dose 50 MG; Start 07/09/18 at 20:00 LASHANDA FORTUNE MD Jul 10, 2018 16:53
[2018-07-10] MEDS: morphine 2 MG INJ IV PRN (20:16)
[2018-07-10 20:39] VITALS: BP 105/79; PULSE 101; RESP 19
[2018-07-10] MEDS: HYDROCODONE/APAP (5/325) TAB PO PRN (23:02)
[2018-07-11] MEDS: DIPHENHYDRAMINE 50 MG CAP PO PRN ×2 (00:07→06:32)
[2018-07-11 02:24] VITALS: BP 100/63; PULSE 89; RESP 18
[2018-07-11] MEDS: morphine 2 MG INJ IV PRN ×2 (05:08→23:42)
[2018-07-11 08:09] VITALS: BP 108/68; PULSE 96; RESP 16
[2018-07-11] MEDS: DULOXETINE 30 MG CAP DR PO SCH (10:20)
[2018-07-11] MEDS: LEVETIRACETAM 500 MG TAB PO SCH ×2 (10:20→21:37)
[2018-07-11] MEDS: SENNA TAB PO SCH ×2 (10:21→21:37)
[2018-07-11] MEDS: FLUDROCORTISONE 0.1 MG TAB PO SCH (10:21)
[2018-07-11] MEDS: NYSTATIN 30 GM POWDER BTL TOP SCH ×2 (10:22→21:40)
[2018-07-11] MEDS: FAMOTIDINE 20 MG TAB PO SCH (10:22)
[2018-07-11 14:14] VITALS: BP 106/67; PULSE 97; RESP 16
[2018-07-11] MEDS ORDERED: SOD CHLORIDE 0.9% 1,000 ML IV ONE (15:00)
--- NOTE | 2018-07-11 17:15 | PN ---
Date/Time of Note Date/Time of Note DATE: 07/11/18 TIME: 17:15 Assessment/Plan VTE Prophylaxis Risk score (from Nsg)>0 risk: 5 SCD applied (from Nsg): Yes Pharmacological prophylaxis: heparin Lines/Catheters IV Catheter Type (from Nrsg): PAC Urinary Cath still in place: Yes Reason Cath still needed: urinary retention Assessment/Plan Hospital Course 1. Abdominal pain secondary to skin excoriation from leakage of ileostomy site Wound care nurse consultation appreciated, ostomy has been adjusted and wound care recommendations will be followed Family would like to ultimately take the patient back home and would like to learn proper ostomy care from wound care nurse Wound care nurse Ángela to give further guidance of ostomy care to patient's sisters Ileostomy was just done 2 weeks ago and family was unable to manage at home Pain control 2. UTI secondary to chronic Avalos catheter s/p Rocephin Urine culture noted 3. History of ovarian cancer status post SLIME/BSO Patient was receiving chemotherapy but was stopped after she had a stroke Family would like to continue chemotherapy and will follow-up with outpatient oncologist 4. History of CVA No acute issues 5. 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 Transaminitis Monitor 7. Normocytic anemia likely secondary chronic disease monitor Prophylaxis: No Lovenox or heparin secondary to skin excoriations in the abdomen DC planning: Family would like to speak to the wound care nurse Ángela for advice on proper ostomy care, anticipate DC to SNF Result Diagram: 07/11/18 1619 07/11/18 1619 Results 24hrs Laboratory Tests Test 07/11/18 16:19 White Blood Count 7.7 Red Blood Count 3.12 L Hemoglobin 9.6 L Hematocrit 28.9 L Mean Corpuscular Volume 92.6 Mean Corpuscular Hemoglobin 30.8 Mean Corpuscular Hemoglobin Concent 33.2 Red Cell Distribution Width 15.5 H Platelet Count 229 Mean Platelet Volume 9.8 Immature Granulocytes % 0.700 H Neutrophils % 69.8 Lymphocytes % 18.0 Monocytes % 7.6 Eosinophils % 3.5 Basophils % 0.4 Nucleated Red Blood Cells % 0.0 Immature Granulocytes # 0.050 H Neutrophils # 5.4 Lymphocytes # 1.4 Monocytes # 0.6 Eosinophils # 0.3 Basophils # 0.0 Nucleated Red Blood Cells # 0.0 Sodium Level 139 Potassium Level 3.4 L Chloride Level 110 Carbon Dioxide Level 19 L Anion Gap 10 Blood Urea Nitrogen 15 Creatinine 0.47 Est Glomerular Filtrat Rate mL/min > 60 Glucose Level 104 Calcium Level 10.2 Subjective 24 Hr Interval Summary Free Text/Dictation Still with pain Avalos is leaking. Wants it removed Exam/Review of Systems Exam Vitals Vital Signs Date Temp Pulse Resp B/P (MAP) Pulse Ox O2 O2 Flow FiO2 Time Delivery Rate 07/11/18 97.9 97 16 106/67 98 Room Air 14:14 (80) Intake and Output 07/10/18 07/10/18 07/11/18 1515:00 23:00 07:00 IntakeIntake Total 240 ml 545 ml 100 ml OutputOutput Total 1000 ml 550 ml BalanceBalance 240 ml -455 ml -450 ml Constitutional: alert, oriented, well developed Psych: no complaints, nl mood/affect Head: normocephalic, atraumatic Eyes: nl conjunctiva, EOMI, nl lids, nl sclera, PERRL ENMT: nl external ears & nose, nl lips & teeth, nl nasal mucosa & septum Neck: supple, non-tender Respiratory: clear to auscultation, normal air movement Cardiovascular: regular rate and rhythm, nl pulses Gastrointestinal: soft, nl liver, spleen, non-tender Musculoskeletal: nl extremities to inspection, nl gait and stance Extremities: normal pulses Neurological: [employer] II-XII intact, nl mental status, nl speech, nl strength Skin: nl turgor; No rash or lesions Lymph: nl lymph nodes Results Results 24hrs Laboratory Tests Test 07/11/18 16:19 White Blood Count 7.7 Red Blood Count 3.12 L Hemoglobin 9.6 L Hematocrit 28.9 L Mean Corpuscular Volume 92.6 Mean Corpuscular Hemoglobin 30.8 Mean Corpuscular Hemoglobin Concent 33.2 Red Cell Distribution Width 15.5 H Platelet Count 229 Mean Platelet Volume 9.8 Immature Granulocytes % 0.700 H Neutrophils % 69.8 Lymphocytes % 18.0 Monocytes % 7.6 Eosinophils % 3.5 Basophils % 0.4 Nucleated Red Blood Cells % 0.0 Immature Granulocytes # 0.050 H Neutrophils # 5.4 Lymphocytes # 1.4 Monocytes # 0.6 Eosinophils # 0.3 Basophils # 0.0 Nucleated Red Blood Cells # 0.0 Sodium Level 139 Potassium Level 3.4 L Chloride Level 110 Carbon Dioxide Level 19 L Anion Gap 10 Blood Urea Nitrogen 15 Creatinine 0.47 Est Glomerular Filtrat Rate mL/min > 60 Glucose Level 104 Calcium Level 10.2 Medications Medication Current Medications IV Flush (NS 3 ml) 3 ml PER PROTOCOL IV ; Start 07/06/18 at 16:00 Ondansetron HCl (Zofran Inj) 4 mg Q6H PRN IV NAUSEA/VOMITING; Start 07/06/18 at 16:00 Acetaminophen (Tylenol Tab) 650 mg Q6H PRN PO .PAIN 1-3 OR TEMP Last administered on 07/09/18at 12:02; Admin Dose 650 MG; Start 07/06/18 at 16:00 Acetaminophen/ Hydrocodone Bitart ([place] (5/325)) 1 tab Q6H PRN PO .MOD PAIN 4- 6 Last administered on 07/10/18at 23:02; Admin Dose 1 TAB; Start 07/06/18 at 16:00 Morphine Sulfate (morphine) 2 mg Q4H PRN IV .SEVERE PAIN 7-10 Last administered on 07/11/18 05:08; Admin Dose 2 MG; Start 07/06/18 at 16:00 Docusate Sodium (Colace) 100 mg Q12H PRN PO .CONSTIPATION; Start 07/06/18 at 16:00 Zolpidem Tartrate (Ambien) 5 mg QHS PRN PO .INSOMNIA; Start 07/06/18 at 16:00 Bisacodyl (Dulcolax Supp) 10 mg Q72H PRN [place] NEEDED; Start 07/06/18 at 16:00 Duloxetine HCl (Cymbalta) 30 mg DAILY PO Last administered on 07/11/18 10:20; Admin Dose 30 MG; Start 07/07/18 at 09:00 Famotidine (Pepcid) 40 mg DAILY PO Last administered on 07/11/18 10:22; Admin Dose 40 MG; Start 07/07/18 at 09:00 Fludrocortisone Acetate (Florinef) 0.1 mg DAILY PO Last administered on 07/11/18 t 10:21; Admin Dose 0.1 MG; Start 07/07/18 at 09:00 Hyoscyamine (Levsin (Sl)) 0.125 mg Q4H PRN SL NEEDED; Start 07/06/18 at 16:00 Levetiracetam (Keppra) 500 mg Q12 PO Last administered on 07/11/18 10:20; Admin Dose 500 MG; Start 07/06/18 at 17:00 Lorazepam (Ativan) 0.5 mg Q4H PRN PO ANXIETY Last administered on 07/09/18 12:02; Admin Dose 0.5 MG; Start 07/06/18 at 16:00 Ondansetron HCl (Zofran Tab) 4 mg Q4H PRN PO NAUSEA AND/OR VOMITING; Start 07/06/18 at 16:00 Senna (Senokot) 1 tab BID PO Last administered on 07/11/18 10:21; Admin Dose 1 TAB; Start 07/06/18 at 21:00 Nystatin (Nystatin Powder) 1 applic BID TOP Last administered on 07/11/18 10:22; Admin Dose 1 APPLIC; Start 07/06/18 at 21:00 Diphenhydramine HCl (Benadryl) 50 mg Q6H PRN PO ITCHING Last administered on 07/11/18 06:32; Admin Dose 50 MG; Start 07/09/18 at 20:00 LASHANDA FORTUNE MD Jul 11, 2018 17:15
[2018-07-11 20:30] VITALS: BP 109/69; PULSE 83; RESP 19
[2018-07-11] MEDS: morphine (ER) 15 MG TAB PO SCH (22:30)
[2018-07-12 02:35] VITALS: BP 107/67; PULSE 94; RESP 18
[2018-07-12] MEDS: morphine (ER) 15 MG TAB PO SCH ×3 (05:53→22:23)
[2018-07-12 08:30] VITALS: BP 105/63; PULSE 85; RESP 18
[2018-07-12] MEDS: NYSTATIN 30 GM POWDER BTL TOP SCH ×2 (08:53→20:56)
[2018-07-12] MEDS: SENNA TAB PO SCH ×2 (08:53→20:56)
[2018-07-12] MEDS: FLUDROCORTISONE 0.1 MG TAB PO SCH (08:53)
[2018-07-12] MEDS: FAMOTIDINE 20 MG TAB PO SCH (08:53)
[2018-07-12] MEDS: DULOXETINE 30 MG CAP DR PO SCH (08:53)
[2018-07-12] MEDS: LEVETIRACETAM 500 MG TAB PO SCH ×2 (08:53→20:56)
[2018-07-12] MEDS: DIPHENHYDRAMINE 50 MG CAP PO PRN ×3 (08:57→23:15)
--- NOTE | 2018-07-12 16:35 | PN ---
Date/Time of Note Date/Time of Note DATE: 07/12/18 TIME: 16:33 Assessment/Plan VTE Prophylaxis Risk score (from Nsg)>0 risk: 7 SCD applied (from Nsg): Yes Pharmacological prophylaxis: heparin Lines/Catheters IV Catheter Type (from Nrsg): PORT-A-CATH Urinary Cath still in place: No Assessment/Plan Hospital Course 47 yo female with ovarian cancer, s/p ileostomy for obstruction presents with pain at ostomy site Ostomy pain from skin excoriation: - Pain control, MS Contin added - Wond care History of ovarian cancer status post SLIME/BSO Patient was receiving chemotherapy but was stopped after she had a stroke Family would like to continue chemotherapy and will follow-up with outpatient oncologist 4. History of CVA No acute issues 5. 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 Transaminitis Monitor 7. Normocytic anemia likely secondary chronic disease monitor Prophylaxis: No Lovenox or heparin secondary to skin excoriations in the abdomen DC planning: anticipate DC to SNF Result Diagram: 07/11/18 1619 07/11/18 1619 Subjective 24 Hr Interval Summary Free Text/Dictation Pain improved on MS Britni Working on dc planning Exam/Review of Systems Exam Vitals Vital Signs Date Temp Pulse Resp B/P (MAP) Pulse Ox O2 O2 Flow FiO2 Time Delivery Rate 07/12/18 98.3 85 18 105/63 100 08:30 (77) 07/11/18 Room Air 14:14 Intake and Output 07/11/18 07/11/18 07/12/18 1515:00 23:00 07:00 IntakeIntake Total 1000 ml OutputOutput Total 375 ml 200 ml BalanceBalance -375 ml 800 ml Constitutional: alert, oriented, well developed Psych: no complaints, nl mood/affect Head: normocephalic, atraumatic Eyes: nl conjunctiva, EOMI, nl lids, nl sclera, PERRL ENMT: nl external ears & nose, nl lips & teeth, nl nasal mucosa & septum Neck: supple, non-tender Respiratory: clear to auscultation, normal air movement Cardiovascular: regular rate and rhythm, nl pulses Gastrointestinal: soft, nl liver, spleen, non-tender Musculoskeletal: nl extremities to inspection, nl gait and stance Extremities: normal pulses Neurological: INFANTRY OFFICER II-XII intact, nl mental status, nl speech, nl strength Skin: nl turgor; No rash or lesions Lymph: nl lymph nodes Medications Medication Current Medications IV Flush (NS 3 ml) 3 ml PER PROTOCOL IV ; Start 07/06/18 at 16:00 Ondansetron HCl (Zofran Inj) 4 mg Q6H PRN IV NAUSEA/VOMITING; Start 07/06/18 at 16:00 Acetaminophen (Tylenol Tab) 650 mg Q6H PRN PO .PAIN 1-3 OR TEMP Last administered on 07/09/18 12:02; Admin Dose 650 MG; Start 07/06/18 at 16:00 Acetaminophen/ Hydrocodone Bitart ([place] (5/325)) 1 tab Q6H PRN PO .MOD PAIN 4- 6 Last administered on 07/10/18 23:02; Admin Dose 1 TAB; Start 07/06/18 at 16:00 Morphine Sulfate (morphine) 2 mg Q4H PRN IV .SEVERE PAIN 7-10 Last administered on 07/11/18 23:42; Admin Dose 2 MG; Start 07/06/18 at 16:00 Docusate Sodium (Colace) 100 mg Q12H PRN PO .CONSTIPATION; Start 07/06/18 at 16:00 Zolpidem Tartrate (Ambien) 5 mg QHS PRN PO .INSOMNIA; Start 07/06/18 at 16:00 Bisacodyl (Dulcolax Supp) 10 mg Q72H PRN [place] NEEDED; Start 07/06/18 at 16:00 Duloxetine HCl (Cymbalta) 30 mg DAILY PO Last administered on 07/12/18 08:53; Admin Dose 30 MG; Start 07/07/18 at 09:00 Famotidine (Pepcid) 40 mg DAILY PO Last administered on 07/12/18 08:53; Admin Dose 40 MG; Start 07/07/18 at 09:00 Fludrocortisone Acetate (Florinef) 0.1 mg DAILY PO Last administered on 07/12/18 08:53; Admin Dose 0.1 MG; Start 07/07/18 at 09:00 Hyoscyamine (Levsin (Sl)) 0.125 mg Q4H PRN [place] NEEDED; Start 07/06/18 at 16:00 Levetiracetam (Keppra) 500 mg Q12 PO Last administered on 07/12/18 08:53; Admin Dose 500 MG; Start 07/06/18 at 17:00 Lorazepam (Ativan) 0.5 mg Q4H PRN PO ANXIETY Last administered on 07/09/18 12:02; Admin Dose 0.5 MG; Start 07/06/18 at 16:00 Ondansetron HCl (Zofran Tab) 4 mg Q4H PRN PO NAUSEA AND/OR VOMITING; Start 07/06/18 at 16:00 Senna (Senokot) 1 tab BID PO Last administered on 07/12/18 08:53; Admin Dose 1 TAB; Start 07/06/18 at 21:00 Nystatin (Nystatin Powder) 1 applic BID TOP Last administered on 07/12/18 08:53; Admin Dose 1 APPLIC; Start 07/06/18 at 21:00 Diphenhydramine HCl (Benadryl) 50 mg Q6H PRN PO ITCHING Last administered on 07/12/18 16:19; Admin Dose 50 MG; Start 07/09/18 at 20:00 Morphine Sulfate (Ms Contin (Er)) 15 mg Q8 PO Last administered on 07/12/18 14:01; Admin Dose 15 MG; Start 07/11/18 at 22:00 LASHANDA FORTUNE MD Jul 12, 2018 16:35
[2018-07-12 19:50] VITALS: BP 101/60; PULSE 88; RESP 18
[2018-07-13 01:35] VITALS: BP 112/66; PULSE 91; RESP 18
[2018-07-13] MEDS: morphine (ER) 15 MG TAB PO SCH ×3 (05:47→22:00)
[2018-07-13] MEDS: DIPHENHYDRAMINE 50 MG CAP PO PRN ×3 (05:48→19:26)
[2018-07-13 08:09] VITALS: BP 119/62; PULSE 82; RESP 19
[2018-07-13] MEDS: SENNA TAB PO SCH ×2 (09:13→20:36)
[2018-07-13] MEDS: LEVETIRACETAM 500 MG TAB PO SCH ×2 (09:13→20:36)
[2018-07-13] MEDS: DULOXETINE 30 MG CAP DR PO SCH (09:13)
[2018-07-13] MEDS: NYSTATIN 30 GM POWDER BTL TOP SCH ×2 (09:14→20:36)
[2018-07-13] MEDS: FAMOTIDINE 20 MG TAB PO SCH (09:14)
[2018-07-13] MEDS: FLUDROCORTISONE 0.1 MG TAB PO SCH (09:14)
[2018-07-13] MEDS: morphine 2 MG INJ IV PRN (12:45)
[2018-07-13 15:29] VITALS: BP 108/68; PULSE 88; RESP 18
--- NOTE | 2018-07-13 16:49 | PN ---
Date/Time of Note Date/Time of Note DATE: 07/13/18 TIME: 16:49 Assessment/Plan VTE Prophylaxis Risk score (from Nsg)>0 risk: 7 SCD applied (from Nsg): Yes Pharmacological prophylaxis: heparin Lines/Catheters IV Catheter Type (from Nrsg): PORTACATH Urinary Cath still in place: No Assessment/Plan Hospital Course 47 yo female with ovarian cancer, s/p ileostomy for obstruction presents with pain at ostomy site Ostomy pain from skin excoriation: - Pain control, MS Contin added - Wond care History of ovarian cancer status post SLIME/BSO Patient was receiving chemotherapy but was stopped after she had a stroke Family would like to continue chemotherapy and will follow-up with outpatient oncologist 4. History of CVA No acute issues 5. 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 Transaminitis Monitor 7. Normocytic anemia likely secondary chronic disease monitor Prophylaxis: No Lovenox or heparin secondary to skin excoriations in the abdomen DC planning: anticipate DC to SNF Result Diagram: 07/11/18 1619 07/11/18 1619 Subjective 24 Hr Interval Summary Free Text/Dictation Continues to have itching around stoma, mild leakage Exam/Review of Systems Exam Vitals Vital Signs Date Temp Pulse Resp B/P (MAP) Pulse Ox O2 O2 Flow FiO2 Time Delivery Rate 07/13/18 97.2 88 18 108/68 96 15:29 (81) 07/11/18 Room Air 14:14 Intake and Output 07/12/18 07/12/18 07/13/18 1515:00 23:00 07:00 IntakeIntake Total 240 ml 460 ml OutputOutput Total 501 ml 500 ml BalanceBalance -261 ml -40 ml Constitutional: alert, oriented, well developed Psych: no complaints, nl mood/affect Head: normocephalic, atraumatic Eyes: nl conjunctiva, EOMI, nl lids, nl sclera, PERRL ENMT: nl external ears & nose, nl lips & teeth, nl nasal mucosa & septum Neck: supple, non-tender Respiratory: clear to auscultation, normal air movement Cardiovascular: regular rate and rhythm, nl pulses Gastrointestinal: soft, nl liver, spleen, non-tender Musculoskeletal: nl extremities to inspection, nl gait and stance Extremities: normal pulses Neurological: OBSTETRICIAN AND GYNAECOLOGIST II-XII intact, nl mental status, nl speech, nl strength Skin: nl turgor; No rash or lesions Lymph: nl lymph nodes Medications Medication Current Medications IV Flush (NS 3 ml) 3 ml PER PROTOCOL IV ; Start 07/06/18 at 16:00 Ondansetron HCl (Zofran Inj) 4 mg Q6H PRN IV NAUSEA/VOMITING; Start 07/06/18 at 16:00 Acetaminophen (Tylenol Tab) 650 mg Q6H PRN PO .PAIN 1-3 OR TEMP Last administered on 07/09/18 12:02; Admin Dose 650 MG; Start 07/06/18 at 16:00 Acetaminophen/ Hydrocodone Bitart ([place] (5/325)) 1 tab Q6H PRN PO .MOD PAIN 4- 6 Last administered on 07/10/18 23:02; Admin Dose 1 TAB; Start 07/06/18 at 16:00 Morphine Sulfate (morphine) 2 mg Q4H PRN IV .SEVERE PAIN 7-10 Last administered on 07/13/18 12:45; Admin Dose 2 MG; Start 07/06/18 at 16:00 Docusate Sodium (Colace) 100 mg Q12H PRN PO .CONSTIPATION; Start 07/06/18 at 16:00 Zolpidem Tartrate (Ambien) 5 mg QHS PRN PO .INSOMNIA; Start 07/06/18 at 16:00 Bisacodyl (Dulcolax Supp) 10 mg Q72H PRN [place] NEEDED; Start 07/06/18 at 16:00 Duloxetine HCl (Cymbalta) 30 mg DAILY PO Last administered on 07/13/18 09:13; Admin Dose 30 MG; Start 07/07/18 at 09:00 Famotidine (Pepcid) 40 mg DAILY PO Last administered on 07/13/18 09:14; Admin Dose 40 MG; Start 07/07/18 at 09:00 Fludrocortisone Acetate (Florinef) 0.1 mg DAILY PO Last administered on 07/13/18 09:14; Admin Dose 0.1 MG; Start 07/07/18 at 09:00 Hyoscyamine (Levsin (Sl)) 0.125 mg Q4H PRN [place] NEEDED; Start 07/06/18 at 16:00 Levetiracetam (Keppra) 500 mg Q12 PO Last administered on 07/13/18 09:13; Admin Dose 500 MG; Start 07/06/18 at 17:00 Lorazepam (Ativan) 0.5 mg Q4H PRN PO ANXIETY Last administered on 07/09/18 12:02; Admin Dose 0.5 MG; Start 07/06/18 at 16:00 Ondansetron HCl (Zofran Tab) 4 mg Q4H PRN PO NAUSEA AND/OR VOMITING; Start 07/06/18 at 16:00 Senna (Senokot) 1 tab BID PO Last administered on 07/13/18 09:13; Admin Dose 1 TAB; Start 07/06/18 at 21:00 Nystatin (Nystatin Powder) 1 applic BID TOP Last administered on 07/13/18 09:14; Admin Dose 1 APPLIC; Start 07/06/18 at 21:00 Diphenhydramine HCl (Benadryl) 50 mg Q6H PRN PO ITCHING Last administered on 07/13/18 11:23; Admin Dose 50 MG; Start 07/09/18 at 20:00 Morphine Sulfate (Ms Contin (Er)) 15 mg Q8 PO Last administered on 07/13/18 14:29; Admin Dose 15 MG; Start 07/11/18 at 22:00 LASHANDA FORTUNE MD Jul 13, 2018 16:49
[2018-07-13 19:25] VITALS: BP 99/60; PULSE 83; RESP 18
[2018-07-14 02:26] VITALS: BP 100/56; PULSE 84; RESP 18
[2018-07-14] MEDS: DIPHENHYDRAMINE 50 MG CAP PO PRN ×3 (04:21→17:41)
[2018-07-14] MEDS: morphine (ER) 15 MG TAB PO SCH ×3 (06:09→22:27)
[2018-07-14] MEDS: HYDROCODONE/APAP (5/325) TAB PO PRN ×2 (08:07→19:18)
[2018-07-14] MEDS: LEVETIRACETAM 500 MG TAB PO SCH ×2 (09:11→21:08)
[2018-07-14] MEDS: DULOXETINE 30 MG CAP DR PO SCH (09:11)
[2018-07-14] MEDS: FLUDROCORTISONE 0.1 MG TAB PO SCH (09:11)
[2018-07-14] MEDS: NYSTATIN 30 GM POWDER BTL TOP SCH ×2 (09:13→21:08)
[2018-07-14] MEDS: SENNA TAB PO SCH ×2 (09:13→21:08)
[2018-07-14] MEDS: FAMOTIDINE 20 MG TAB PO SCH (09:13)
--- NOTE | 2018-07-14 18:30 | PN ---
Date/Time of Note Date/Time of Note DATE: 07/14/18 TIME: 18:27 Assessment/Plan VTE Prophylaxis Risk score (from Nsg)>0 risk: 7 SCD applied (from Nsg): Yes Pharmacological prophylaxis: heparin Lines/Catheters IV Catheter Type (from Nrsg): RIGHT CHEST CHUY CATH Urinary Cath still in place: No Assessment/Plan Hospital Course EXAM: Appears comfortable Alopecia Cachectic appearance Breathing comfortably RRR abdomen with ostomies. Skin excoriation present No edema 47 yo female with ovarian cancer, s/p ileostomy for fistula presents with pain at ostomy site Rita-stomal pain from skin excoriation: - Pain control, MS Contin added with good effect - Wond care History of ovarian cancer status post SLIME/BSO - [facility] is interested in further care, will see Dr Burk at [facility] post discharge DC planning: anticipate DC to SNF. Family is looking at facilities Result Diagram: 07/11/18 1619 07/11/18 1619 Subjective 24 Hr Interval Summary Free Text/Dictation Worked with PT today Still awaitng dc plan Exam/Review of Systems Exam Vitals Vital Signs Date Temp Pulse Resp B/P (MAP) Pulse Ox O2 O2 Flow FiO2 Time Delivery Rate 07/14/18 98.0 84 18 100/56 98 02:26 (71) 07/11/18 Room Air 14:14 Intake and Output 07/13/18 07/13/18 07/14/18 1414:59 22:59 06:59 IntakeIntake Total 820 ml OutputOutput Total 422 ml 250 ml BalanceBalance 398 ml -250 ml Medications Medication Current Medications IV Flush (NS 3 ml) 3 ml PER PROTOCOL IV ; Start 07/06/18 at 16:00 Ondansetron HCl (Zofran Inj) 4 mg Q6H PRN IV NAUSEA/VOMITING; Start 07/06/18 at 16:00 Acetaminophen (Tylenol Tab) 650 mg Q6H PRN PO .PAIN 1-3 OR TEMP Last administered on 07/09/18at 12:02; Admin Dose 650 MG; Start 07/06/18 at 16:00 Acetaminophen/ Hydrocodone Bitart ([place] (5/325)) 1 tab Q6H PRN PO .MOD PAIN 4- 6 Last administered on 07/14/18at 08:07; Admin Dose 1 TAB; Start 07/06/18 at 16:00 Morphine Sulfate (morphine) 2 mg Q4H PRN IV .SEVERE PAIN 7-10 Last administered on 07/13/18 12:45; Admin Dose 2 MG; Start 07/06/18 at 16:00 Docusate Sodium (Colace) 100 mg Q12H PRN PO .CONSTIPATION; Start 07/06/18 at 16:00 Zolpidem Tartrate (Ambien) 5 mg QHS PRN PO .INSOMNIA; Start 07/06/18 at 16:00 Bisacodyl (Dulcolax Supp) 10 mg Q72H PRN [place] NEEDED; Start 07/06/18 at 16:00 Duloxetine HCl (Cymbalta) 30 mg DAILY PO Last administered on 07/14/18 09:11; Admin Dose 30 MG; Start 07/07/18 at 09:00 Famotidine (Pepcid) 40 mg DAILY PO Last administered on 07/14/18 09:13; Admin Dose 40 MG; Start 07/07/18 at 09:00 Fludrocortisone Acetate (Florinef) 0.1 mg DAILY PO Last administered on 07/14/18 09:11; Admin Dose 0.1 MG; Start 07/07/18 at 09:00 Hyoscyamine (Levsin (Sl)) 0.125 mg Q4H PRN [place] NEEDED; Start 07/06/18 at 16:00 Levetiracetam (Keppra) 500 mg Q12 PO Last administered on 07/14/18 09:11; Admin Dose 500 MG; Start 07/06/18 at 17:00 Lorazepam (Ativan) 0.5 mg Q4H PRN PO ANXIETY Last administered on 07/09/18 12:02; Admin Dose 0.5 MG; Start 07/06/18 at 16:00 Ondansetron HCl (Zofran Tab) 4 mg Q4H PRN PO NAUSEA AND/OR VOMITING; Start 07/06/18 at 16:00 Senna (Senokot) 1 tab BID PO Last administered on 07/14/18 09:13; Admin Dose 1 TAB; Start 07/06/18 at 21:00 Nystatin (Nystatin Powder) 1 applic BID TOP Last administered on 07/14/18 09:13; Admin Dose 1 APPLIC; Start 07/06/18 at 21:00 Diphenhydramine HCl (Benadryl) 50 mg Q6H PRN PO ITCHING Last administered on 07/14/18at 17:41; Admin Dose 50 MG; Start 07/09/18 at 20:00 Morphine Sulfate (Ms Contin (Er)) 15 mg Q8 PO Last administered on 07/14/18at 14: 40; Admin Dose 15 MG; Start 07/11/18 at 22:00 LASHANDA FORTUNE MD Jul 14, 2018 18:30
[2018-07-14 19:50] VITALS: BP 108/66; PULSE 97; RESP 18
[2018-07-15] MEDS: DIPHENHYDRAMINE 50 MG CAP PO PRN ×4 (00:24→22:36)
[2018-07-15 01:31] VITALS: BP 99/68; PULSE 89; RESP 18
[2018-07-15] MEDS: morphine (ER) 15 MG TAB PO SCH ×3 (05:57→21:07)
[2018-07-15 07:46] VITALS: BP 95/63; PULSE 94; RESP 15
[2018-07-15] MEDS: NYSTATIN 30 GM POWDER BTL TOP SCH ×2 (09:00→21:11)
[2018-07-15] MEDS: SENNA TAB PO SCH ×2 (09:00→21:07)
[2018-07-15] MEDS: DULOXETINE 30 MG CAP DR PO SCH (09:29)
[2018-07-15] MEDS: LEVETIRACETAM 500 MG TAB PO SCH ×2 (09:30→21:07)
[2018-07-15] MEDS: FAMOTIDINE 20 MG TAB PO SCH (09:31)
[2018-07-15] MEDS: FLUDROCORTISONE 0.1 MG TAB PO SCH (09:31)
[2018-07-15] MEDS: morphine 2 MG INJ IV PRN (09:32)
[2018-07-15] MEDS: HYDROCODONE/APAP (5/325) TAB PO PRN (11:46)
[2018-07-15 14:50] VITALS: BP 96/59; PULSE 93; RESP 15
--- NOTE | 2018-07-15 16:52 | PN ---
Date/Time of Note Date/Time of Note DATE: 07/15/18 TIME: 16:52 Assessment/Plan VTE Prophylaxis Risk score (from Nsg)>0 risk: 12 SCD applied (from Nsg): Yes Pharmacological prophylaxis: heparin Lines/Catheters IV Catheter Type (from Nrsg): Central Line Central line still needed: Yes Urinary Cath still in place: No Assessment/Plan Hospital Course EXAM: Appears comfortable Alopecia Cachectic appearance Breathing comfortably RRR abdomen with ostomies. Skin excoriation present No edema 47 yo female with ovarian cancer, s/p ileostomy for fistula presents with pain at ostomy site Rita-stomal pain from skin excoriation: - Pain control, MS Contin added with good effect - Wond care History of ovarian cancer status post SLIME/BSO - [place] is interested in further care, will see Dr Burk at [facility] post discharge DC planning: anticipate DC to SNF. Family is looking at facilities. Ready for discharge whenever arrangements are made Result Diagram: 07/11/18 1619 07/11/18 1619 Subjective 24 Hr Interval Summary Free Text/Dictation Had episode of rectal vs vaginal bleeding Comfortable Exam/Review of Systems Exam Vitals Vital Signs Date Temp Pulse Resp B/P (MAP) Pulse Ox O2 O2 Flow FiO2 Time Delivery Rate 07/15/18 97.8 93 15 96/59 (71) 100 Room Air 14:50 Intake and Output 07/14/18 07/14/18 07/15/18 1515:00 23:00 07:00 IntakeIntake Total 400 ml 850 ml 120 ml OutputOutput Total 70 ml 890 ml 100 ml BalanceBalance 330 ml -40 ml 20 ml Medications Medication Current Medications IV Flush (NS 3 ml) 3 ml PER PROTOCOL IV Last administered on 07/15/18at 09:44; Admin Dose 3 ML; Start 07/06/18 at 16:00 Ondansetron HCl (Zofran Inj) 4 mg Q6H PRN IV NAUSEA/VOMITING; Start 07/06/18 at 16:00 Acetaminophen (Tylenol Tab) 650 mg Q6H PRN PO .PAIN 1-3 OR TEMP Last administered on 07/09/18at 12:02; Admin Dose 650 MG; Start 07/06/18 at 16:00 Acetaminophen/ Hydrocodone Bitart ([place] (5/325)) 1 tab Q6H PRN PO .MOD PAIN 4- 6 Last administered on 07/15/18 11:46; Admin Dose 1 TAB; Start 07/06/18 at 16:00 Morphine Sulfate (morphine) 2 mg Q4H PRN IV .SEVERE PAIN 7-10 Last administered on 07/15/18 09:32; Admin Dose 2 MG; Start 07/06/18 at 16:00 Docusate Sodium (Colace) 100 mg Q12H PRN PO .CONSTIPATION; Start 07/06/18 at 16:00 Zolpidem Tartrate (Ambien) 5 mg QHS PRN PO .INSOMNIA; Start 07/06/18 at 16:00 Bisacodyl (Dulcolax Supp) 10 mg Q72H PRN [place] NEEDED; Start 07/06/18 at 16:00 Duloxetine HCl (Cymbalta) 30 mg DAILY PO Last administered on 07/15/18 09:29; A dmin Dose 30 MG; Start 07/07/18 at 09:00 Famotidine (Pepcid) 40 mg DAILY PO Last administered on 07/15/18 09:31; Admin Dose 40 MG; Start 07/07/18 at 09:00 Fludrocortisone Acetate (Florinef) 0.1 mg DAILY PO Last administered on 07/15/18 09:31; Admin Dose 0.1 MG; Start 07/07/18 at 09:00 Hyoscyamine (Levsin (Sl)) 0.125 mg Q4H PRN SL NEEDED; Start 07/06/18 at 16:00 Levetiracetam (Keppra) 500 mg Q12 PO Last administered on 07/15/18 09:30; Admin Dose 500 MG; Start 07/06/18 at 17:00 Lorazepam (Ativan) 0.5 mg Q4H PRN PO ANXIETY Last administered on 07/09/18 12:02; Admin Dose 0.5 MG; Start 07/06/18 at 16:00 Ondansetron HCl (Zofran Tab) 4 mg Q4H PRN PO NAUSEA AND/OR VOMITING; Start 07/06/18 at 16:00 Senna (Senokot) 1 tab BID PO Last administered on 07/14/18 21:08; Admin Dose 1 TAB; Start 07/06/18 at 21:00 Nystatin (Nystatin Powder) 1 applic BID TOP Last administered on 07/14/18 21:08; Admin Dose 1 APPLIC; Start 07/06/18 at 21:00 Diphenhydramine HCl (Benadryl) 50 mg Q6H PRN PO ITCHING Last administered on 07/15/18 16:34; Admin Dose 50 MG; Start 07/09/18 at 20:00 Morphine Sulfate (Ms Contin (Er)) 15 mg Q8 PO Last administered on 07/15/18at 14:05; Admin Dose 15 MG; Start 07/11/18 at 22:00 LASHANDA FORTUNE MD Jul 15, 2018 16:52
[2018-07-15 20:32] VITALS: BP 94/65; PULSE 86; RESP 18
[2018-07-16] MEDS: HYDROCODONE/APAP (5/325) TAB PO PRN ×3 (01:15→16:10)
[2018-07-16 01:28] VITALS: BP 105/62; PULSE 91; RESP 18
[2018-07-16] MEDS ORDERED: ALTEPLASE (CATHFLO) 2 MG INJ CATHETER ONE (01:30)
[2018-07-16 04:00] VITALS: BP 108/66; PULSE 83; RESP 20
[2018-07-16] MEDS: morphine (ER) 15 MG TAB PO SCH ×3 (06:11→22:57)
[2018-07-16] MEDS: DULOXETINE 30 MG CAP DR PO SCH (08:32)
[2018-07-16] MEDS: DIPHENHYDRAMINE 50 MG CAP PO PRN ×2 (08:32→16:11)
[2018-07-16] MEDS: SENNA TAB PO SCH ×2 (08:32→22:56)
[2018-07-16] MEDS: LEVETIRACETAM 500 MG TAB PO SCH ×2 (08:33→22:56)
[2018-07-16] MEDS: NYSTATIN 30 GM POWDER BTL TOP SCH ×2 (08:33→22:57)
[2018-07-16] MEDS: FAMOTIDINE 20 MG TAB PO SCH (08:33)
[2018-07-16] MEDS: FLUDROCORTISONE 0.1 MG TAB PO SCH (08:33)
[2018-07-16 08:39] VITALS: BP 101/60; PULSE 93; RESP 20
[2018-07-16] MEDS: morphine 2 MG INJ IV PRN (10:15)
[2018-07-16] MEDS: hydrOXYzine HCL 25 MG TAB PO SCH ×2 (14:06→22:57)
[2018-07-16 15:23] VITALS: BP 99/59; PULSE 91; RESP 20
--- NOTE | 2018-07-16 17:02 | PN ---
Date/Time of Note Date/Time of Note DATE: 07/16/18 TIME: 17:00 Assessment/Plan VTE Prophylaxis Risk score (from Ns)>0 risk: 7 SCD applied (from Ns): Yes Pharmacological prophylaxis: NA/contraindicated Pharm contraindication: other Lines/Catheters IV Catheter Type (from Nrsg): PORT A CATH Urinary Cath still in place: No Assessment/Plan Hospital Course 1. Abdominal pain secondary to cellulitis and skin excoriation from leakage of ileostomy site-improved Wound care nurse consultation appreciated, ostomy has been adjusted and wound care recommendations will be followed Plan is for DC to nursing facility Ileostomy was just done 2 weeks ago prior to this admission and family was unable to manage at home Pain control Atarax and Benadryl for itching 2. UTI secondary to chronic A[place]os catheter Status post Rocephin 3. History of ovarian cancer status post SLIME/BSO Patient was receiving chemotherapy but was stopped after she had a stroke Family would like to continue chemotherapy and will follow-up with outpatient oncologist 4. History of CVA No acute issues 5. 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 Transaminitis Monitor 7. Normocytic anemia likely secondary chronic disease monitor Prophylaxis: No Lovenox or heparin secondary to skin excoriations in the abdomen DC planning: [place] [facility] Result Diagram: 07/16/18 0823 07/16/18 0823 Results 24hrs Laboratory Tests Test 07/16/18 08:23 White Blood Count 7.4 Red Blood Count 3.51 L Hemoglobin 10.6 L Hematocrit 32.6 L Mean Corpuscular Volume 92.9 Mean Corpuscular Hemoglobin 30.2 Mean Corpuscular Hemoglobin Concent 32.5 Red Cell Distribution Width 14.7 H Platelet Count 164 # Mean Platelet Volume 10.8 H Immature Granulocytes % 0.800 H Neutrophils % 64.7 Lymphocytes % 21.6 Monocytes % 7.6 Eosinophils % 4.9 Basophils % 0.4 Nucleated Red Blood Cells % 0.0 Immature Granulocytes # 0.060 H Neutrophils # 4.8 Lymphocytes # 1.6 Monocytes # 0.6 Eosinophils # 0.4 Basophils # 0.0 Nucleated Red Blood Cells # 0.0 Sodium Level 137 Potassium Level 4.4 Chloride Level 107 Carbon Dioxide Level 19 L Anion Gap 11 Blood Urea Nitrogen 22 H Creatinine 0.54 Est Glomerular Filtrat Rate mL/min > 60 Glucose Level 96 Calcium Level 11.0 H Subjective 24 Hr Interval Summary Constitutional: no complaints Exam/Review of Systems Exam Vitals Vital Signs Date Temp Pulse Resp B/P (MAP) Pulse Ox O2 O2 Flow FiO2 Time Delivery Rate 07/16/18 97.9 91 20 99/59 (72) 97 15:23 07/16/18 Nasal 08:39 Cannula Intake and Output 07/15/18 07/15/18 07/16/18 1515:00 23:00 07:00 IntakeIntake Total 300 ml 425 ml 200 ml OutputOutput Total 535 ml 300 ml 275 ml BalanceBalance -235 ml 125 ml -75 ml Constitutional: alert, oriented Respiratory: clear to auscultation Cardiovascular: regular rate and rhythm Gastrointestinal: soft; No distended Musculoskeletal: nl extremities to inspection Results Results 24hrs Laboratory Tests Test 07/16/18 08:23 White Blood Count 7.4 Red Blood Count 3.51 L Hemoglobin 10.6 L Hematocrit 32.6 L Mean Corpuscular Volume 92.9 Mean Corpuscular Hemoglobin 30.2 Mean Corpuscular Hemoglobin Concent 32.5 Red Cell Distribution Width 14.7 H Platelet Count 164 # Mean Platelet Volume 10.8 H Immature Granulocytes % 0.800 H Neutrophils % 64.7 Lymphocytes % 21.6 Monocytes % 7.6 Eosinophils % 4.9 Basophils % 0.4 Nucleated Red Blood Cells % 0.0 Immature Granulocytes # 0.060 H Neutrophils # 4.8 Lymphocytes # 1.6 Monocytes # 0.6 Eosinophils # 0.4 Basophils # 0.0 Nucleated Red Blood Cells # 0.0 Sodium Level 137 Potassium Level 4.4 Chloride Level 107 Carbon Dioxide Level 19 L Anion Gap 11 Blood Urea Nitrogen 22 H Creatinine 0.54 Est Glomerular Filtrat Rate mL/min > 60 Glucose Level 96 Calcium Level 11.0 H Medications Medication Current Medications IV Flush (NS 3 ml) 3 ml PER PROTOCOL IV Last administered on 07/15/18at 09:44; Admin Dose 3 ML; Start 07/06/18 at 16:00 Ondansetron HCl (Zofran Inj) 4 mg Q6H PRN IV NAUSEA/VOMITING; Start 07/06/18 at 16:00 Acetaminophen (Tylenol Tab) 650 mg Q6H PRN PO .PAIN 1-3 OR TEMP Last administered on 07/09/18 12:02; Admin Dose 650 MG; Start 07/06/18 at 16:00 Acetaminophen/ Hydrocodone Bitart ([place] (5/325)) 1 tab Q6H PRN PO .MOD PAIN 4- 6 Last administered on 07/16/18 16:10; Admin Dose 1 TAB; Start 07/06/18 at 16:00 Morphine Sulfate (morphine) 2 mg Q4H PRN IV .SEVERE PAIN 7-10 Last administered on 07/16/18 10:15; Admin Dose 2 MG; Start 07/06/18 at 16:00 Docusate Sodium (Colace) 100 mg Q12H PRN PO .CONSTIPATION; Start 07/06/18 at 16:00 Zolpidem Tartrate (Ambien) 5 mg QHS PRN PO .INSOMNIA; Start 07/06/18 at 16:00 Bisacodyl (Dulcolax Supp) 10 mg Q72H PRN [place] NEEDED; Start 07/06/18 at 16:00 Duloxetine HCl (Cymbalta) 30 mg DAILY PO Last administered on 07/16/18 08:32; Admin Dose 30 MG; Start 07/07/18 at 09:00 Famotidine (Pepcid) 40 mg DAILY PO Last administered on 07/16/18 08:33; Admin Dose 40 MG; Start 07/07/18 at 09:00 Fludrocortisone Acetate (Florinef) 0.1 mg DAILY PO Last administered on 07/16/18 08:33; Admin Dose 0.1 MG; Start 07/07/18 at 09:00 Hyoscyamine (Levsin (Sl)) 0.125 mg Q4H PRN SL NEEDED; Start 07/06/18 at 16:00 Levetiracetam (Keppra) 500 mg Q12 PO Last administered on 07/16/18 08:33; Admin Dose 500 MG; Start 07/06/18 at 17:00 Lorazepam (Ativan) 0.5 mg Q4H PRN PO ANXIETY Last administered on 07/09/18 12:02; Admin Dose 0.5 MG; Start 07/06/18 at 16:00 Ondansetron HCl (Zofran Tab) 4 mg Q4H PRN PO NAUSEA AND/OR VOMITING; Start 07/06/18 at 16:00 Senna (Senokot) 1 tab BID PO Last administered on 07/16/18 08:32; Admin Dose 1 TAB; Start 07/06/18 at 21:00 Nystatin (Nystatin Powder) 1 applic BID TOP Last administered on 07/16/18 08:33; Admin Dose 1 APPLIC; Start 07/06/18 at 21:00 Diphenhydramine HCl (Benadryl) 50 mg Q6H PRN PO ITCHING Last administered on 07/16/18 16:11; Admin Dose 50 MG; Start 07/09/18 at 20:00 Morphine Sulfate (Ms Contin (Er)) 15 mg Q8 PO Last administered on 07/16/18 14:05; Admin Dose 15 MG; Start 07/11/18 at 22:00 Hydroxyzine HCl (Atarax) 25 mg TID PO Last administered on 07/16/18 14:06; Admin Dose 25 MG; Start 07/16/18 at 13:00 KILO LONG Jul 16, 2018 17:02
[2018-07-16 20:37] VITALS: BP 90/55; PULSE 86; RESP 18
[2018-07-16 21:33] VITALS: BP 102/59; PULSE 87; RESP 18
[2018-07-16] MEDS ORDERED: SOD CHLORIDE 0.9% 250 ML IV ONE (22:30)
[2018-07-17 01:40] VITALS: BP 100/61; PULSE 75; RESP 18
[2018-07-17] MEDS: morphine (ER) 15 MG TAB PO SCH ×3 (06:00→23:03)
[2018-07-17] MEDS: HYDROCODONE/APAP (5/325) TAB PO PRN (07:30)
[2018-07-17 08:25] VITALS: BP 94/58; PULSE 60; RESP 18
[2018-07-17] MEDS: DULOXETINE 30 MG CAP DR PO SCH (08:49)
[2018-07-17] MEDS: NYSTATIN 30 GM POWDER BTL TOP SCH ×2 (08:49→20:44)
[2018-07-17] MEDS: FAMOTIDINE 20 MG TAB PO SCH (08:49)
[2018-07-17] MEDS: hydrOXYzine HCL 25 MG TAB PO SCH ×3 (08:49→20:44)
[2018-07-17] MEDS: FLUDROCORTISONE 0.1 MG TAB PO SCH (08:49)
[2018-07-17] MEDS: SENNA TAB PO SCH ×2 (08:49→20:44)
[2018-07-17] MEDS: LEVETIRACETAM 500 MG TAB PO SCH ×2 (08:49→20:44)
--- NOTE | 2018-07-17 15:06 | PN ---
Date/Time of Note Date/Time of Note DATE: 07/17/18 TIME: 15:04 Assessment/Plan VTE Prophylaxis Risk score (from Nsg)>0 risk: 7 SCD applied (from Nsg): Yes Pharmacological prophylaxis: NA/contraindicated Pharm contraindication: other Lines/Catheters IV Catheter Type (from Nrsg): CHUY CATH Urinary Cath still in place: No Assessment/Plan Hospital Course 1. Abdominal pain secondary to cellulitis and skin excoriation from leakage of ileostomy site-improved Wound care nurse consultation appreciated, ostomy has been adjusted and wound care recommendations will be followed Plan is for DC to nursing facility Ileostomy was just done 2 weeks ago prior to this admission and family was unable to manage at home Pain control Atarax and Benadryl for itching, hydrocortisone ointment also added as itching persist 2. UTI secondary to chronic Avalos catheter Status post Rocephin 3. History of ovarian cancer status post SLIME/BSO Patient was receiving chemotherapy but was stopped after she had a stroke Family would like to continue chemotherapy and will follow-up with outpatient oncologist 4. History of CVA No acute issues 5. 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 Transaminitis Monitor 7. Normocytic anemia likely secondary chronic disease monitor Prophylaxis: No Lovenox or heparin secondary to skin excoriations in the abdomen [facility] Result Diagram: 07/16/1882207/16/18 0823 Subjective 24 Hr Interval Summary Skin: pruritis Exam/Review of Systems Exam Vitals Vital Signs Date Temp Pulse Resp B/P (MAP) Pulse Ox O2 O2 Flow FiO2 Time Delivery Rate 07/17/18 98.2 60 18 94/58 (70) 91 Nasal 08:25 Cannula Intake and Output 07/16/18 07/16/18 07/17/18 1515:00 23:00 07:00 IntakeIntake Total 640 ml 665 ml 450 ml OutputOutput Total 260 ml 240 ml 400 ml BalanceBalance 380 ml 425 ml 50 ml Constitutional: alert Respiratory: clear to auscultation Cardiovascular: regular rate and rhythm Gastrointestinal: soft; No distended Musculoskeletal: nl extremities to inspection Medications Medication Current Medications IV Flush (NS 3 ml) 3 ml PER PROTOCOL IV Last administered on 07/15/18 09:44; Admin Dose 3 ML; Start 07/06/18 at 16:00 Ondansetron HCl (Zofran Inj) 4 mg Q6H PRN IV NAUSEA/VOMITING; Start 07/06/18 at 16:00 Acetaminophen (Tylenol Tab) 650 mg Q6H PRN PO .PAIN 1-3 OR TEMP Last administered on 07/09/18 12:02; Admin Dose 650 MG; Start 07/06/18 at 16:00 Acetaminophen/ Hydrocodone Bitart ([place] (5/325)) 1 tab Q6H PRN PO .MOD PAIN 4- 6 Last administered on 07/17/18 07:30; Admin Dose 1 TAB; Start 07/06/18 at 16:00 Morphine Sulfate (morphine) 2 mg Q4H PRN IV .SEVERE PAIN 7-10 Last administered on 07/16/18 10:15; Admin Dose 2 MG; Start 07/06/18 at 16:00 Docusate Sodium (Colace) 100 mg Q12H PRN PO .CONSTIPATION; Start 07/06/18 at 16:00 Zolpidem Tartrate (Ambien) 5 mg QHS PRN PO .INSOMNIA; Start 07/06/18 at 16:00 Bisacodyl (Dulcolax Supp) 10 mg Q72H PRN [place] NEEDED; Start 07/06/18 at 16:00 Duloxetine HCl (Cymbalta) 30 mg DAILY PO Last administered on 07/17/18 08:49; Admin Dose 30 MG; Start 07/07/18 at 09:00 Famotidine (Pepcid) 40 mg DAILY PO Last administered on 07/17/18 08:49; Admin Dose 40 MG; Start 07/07/18 at 09:00 Fludrocortisone Acetate (Florinef) 0.1 mg DAILY PO Last administered on 07/17/18 08:49; Admin Dose 0.1 MG; Start 07/07/18 at 09:00 Hyoscyamine (Levsin (Sl)) 0.125 mg Q4H PRN [place] NEEDED; Start 07/06/18 at 16 :00 Levetiracetam (Keppra) 500 mg Q12 PO Last administered on 07/17/18 08:49; Admin Dose 500 MG; Start 07/06/18 at 17:00 Lorazepam (Ativan) 0.5 mg Q4H PRN PO ANXIETY Last administered on 07/09/18 12 :02; Admin Dose 0.5 MG; Start 07/06/18 at 16:00 Ondansetron HCl (Zofran Tab) 4 mg Q4H PRN PO NAUSEA AND/OR VOMITING; Start 07/06/18 at 16:00 Senna (Senokot) 1 tab BID PO Last administered on 07/17/18 08:49; Admin Dose 1 TAB; Start 07/06/18 at 21:00 Nystatin (Nystatin Powder) 1 applic BID TOP Last administered on 07/17/18 08:49; Admin Dose 1 APPLIC; Start 07/06/18 at 21:00 Diphenhydramine HCl (Benadryl) 50 mg Q6H PRN PO ITCHING Last administered on 07/16/18 16:11; Admin Dose 50 MG; Start 07/09/18 at 20:00 Morphine Sulfate (Ms Contin (Er)) 15 mg Q8 PO Last administered on 07/17/18 14:04; Admin Dose 15 MG; Start 07/11/18 at 22:00 Hydroxyzine HCl (Atarax) 25 mg TID PO Last administered on 07/17/18 13:03; Admin Dose 25 MG; Start 07/16/18 at 13:00 KILO LONG Jul 17, 2018 15:06
[2018-07-17 20:08] VITALS: BP 103/63; PULSE 93; RESP 18
[2018-07-17] MEDS: HYDROCORTISONE 1% 28.35 GM OINT TOP SCH (20:44)
[2018-07-18] MEDS: HYDROCODONE/APAP (5/325) TAB PO PRN (00:17)
[2018-07-18 02:16] VITALS: BP 101/57; PULSE 83; RESP 18
[2018-07-18] MEDS: morphine (ER) 15 MG TAB PO SCH ×3 (06:00→21:58)
[2018-07-18 08:13] VITALS: BP 101/63; PULSE 54; RESP 18
[2018-07-18] MEDS: FAMOTIDINE 20 MG TAB PO SCH (08:40)
[2018-07-18] MEDS: HYDROCORTISONE 1% 28.35 GM OINT TOP SCH ×2 (08:40→20:58)
[2018-07-18] MEDS: LEVETIRACETAM 500 MG TAB PO SCH ×2 (08:40→20:57)
[2018-07-18] MEDS: FLUDROCORTISONE 0.1 MG TAB PO SCH (08:40)
[2018-07-18] MEDS: SENNA TAB PO SCH ×2 (08:40→20:58)
[2018-07-18] MEDS: hydrOXYzine HCL 25 MG TAB PO SCH ×3 (08:40→20:57)
[2018-07-18] MEDS: DULOXETINE 30 MG CAP DR PO SCH (08:40)
[2018-07-18] MEDS: NYSTATIN 30 GM POWDER BTL TOP SCH ×2 (08:41→20:58)
[2018-07-18] MEDS ORDERED: HYDR28OI6 TOP (10:31)
[2018-07-18] MEDS ORDERED: BEN50 PO (10:31)
[2018-07-18] MEDS ORDERED: Nystatin Powder TOP (10:31)
[2018-07-18 13:25] VITALS: BP 104/58; PULSE 83; RESP 18
--- NOTE | 2018-07-18 16:48 | PN ---
Date/Time of Note Date/Time of Note DATE: 07/18/18 TIME: 16:48 Assessment/Plan VTE Prophylaxis Risk score (from Ns)>0 risk: 7 SCD applied (from Ns): Yes Pharmacological prophylaxis: NA/contraindicated Pharm contraindication: other Lines/Catheters IV Catheter Type (from Nrsg): Port a Cath Urinary Cath still in place: No Assessment/Plan Hospital Course 1. Abdominal pain secondary to cellulitis and skin excoriation from leakage of ileostomy site-improved Wound care nurse consultation appreciated, ostomy has been adjusted and wound care recommendations will be followed Plan is for DC to nursing facility Ileostomy was just done 2 weeks ago prior to this admission and family was unable to manage at home Pain control Atarax and Benadryl for itching, hydrocortisone ointment also added as itching persist 2. UTI secondary to chronic Avalos catheter Status post Rocephin 3. History of ovarian cancer status post SLIME/BSO Patient was receiving chemotherapy but was stopped after she had a stroke Family would like to continue chemotherapy and will follow-up with outpatient oncologist 4. History of CVA No acute issues 5. 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 Transaminitis Monitor 7. Normocytic anemia likely secondary chronic disease monitor Prophylaxis: No Lovenox or heparin secondary to skin excoriations in the abdomen [facility] Result Diagram: 07/16/1882207/16/18 0823 Subjective 24 Hr Interval Summary Constitutional: no complaints Exam/Review of Systems Exam Vitals Vital Signs Date Temp Pulse Resp B/P (MAP) Pulse Ox O2 O2 Flow FiO2 Time Delivery Rate 07/18/18 98.9 83 18 104/58 92 13:25 (73) 07/18/18 Room Air 02:16 Intake and Output 07/17/18 07/17/18 07/18/18 1515:00 23:00 07:00 IntakeIntake Total 1000 ml 710 ml 300 ml OutputOutput Total 380 ml 650 ml 400 ml BalanceBalance 620 ml 60 ml -100 ml Constitutional: alert, oriented Respiratory: clear to auscultation Cardiovascular: regular rate and rhythm Gastrointestinal: soft; No distended Musculoskeletal: nl extremities to inspection Medications Medication Current Medications IV Flush (NS 3 ml) 3 ml PER PROTOCOL IV Last administered on 07/15/18 09:44; Admin Dose 3 ML; Start 07/06/18 at 16:00 Ondansetron HCl (Zofran Inj) 4 mg Q6H PRN IV NAUSEA/VOMITING; Start 07/06/18 at 16:00 Acetaminophen (Tylenol Tab) 650 mg Q6H PRN PO .PAIN 1-3 OR TEMP Last administered on 07/09/18at 12:02; Admin Dose 650 MG; Start 07/06/18 at 16:00 Acetaminophen/ Hydrocodone Bitart ([place] (5/325)) 1 tab Q6H PRN PO .MOD PAIN 4- 6 Last administered on 07/18/18at 00:17; Admin Dose 1 TAB; Start 07/06/18 at 16:00 Morphine Sulfate (morphine) 2 mg Q4H PRN IV .SEVERE PAIN 7-10 Last administered on 07/16/18 10:15; Admin Dose 2 MG; Start 07/06/18 at 16:00 Docusate Sodium (Colace) 100 mg Q12H PRN PO .CONSTIPATION; Start 07/06/18 at 16:00 Zolpidem Tartrate (Ambien) 5 mg QHS PRN PO .INSOMNIA; Start 07/06/18 at 16:00 Bisacodyl (Dulcolax Supp) 10 mg Q72H PRN [place] NEEDED; Start 07/06/18 at 16:00 Duloxetine HCl (Cymbalta) 30 mg DAILY PO Last administered on 07/18/18 08:40; Admin Dose 30 MG; Start 07/07/18 at 09:00 Famotidine (Pepcid) 40 mg DAILY PO Last administered on 07/18/18 08:40; Admin Dose 40 MG; Start 07/07/18 at 09:00 Fludrocortisone Acetate (Florinef) 0.1 mg DAILY PO Last administered on 07/18/18 08:40; Admin Dose 0.1 MG; Start 07/07/18 at 09:00 Hyoscyamine (Levsin (Sl)) 0.125 mg Q4H PRN [place] NEEDED; Start 07/06/18 at 16:00 Levetiracetam (Keppra) 500 mg Q12 PO Last administered on 07/18/18 08:40; Admin Dose 500 MG; Start 07/06/18 at 17:00 Lorazepam (Ativan) 0.5 mg Q4H PRN PO ANXIETY Last administered on 07/09/18 12:02; Admin Dose 0.5 MG; Start 07/06/18 at 16:00 Ondansetron HCl (Zofran Tab) 4 mg Q4H PRN PO NAUSEA AND/OR VOMITING; Start 07/06/18 at 16:00 Senna (Senokot) 1 tab BID PO Last administered on 07/18/18 08:40; Admin Dose 1 TAB; Start 07/06/18 at 21:00 Nystatin (Nystatin Powder) 1 applic BID TOP Last administered on 07/18/18 08:41; Admin Dose 1 APPLIC; Start 07/06/18 at 21:00 Diphenhydramine HCl (Benadryl) 50 mg Q6H PRN PO ITCHING Last administered on 07/16/18 16:11; Admin Dose 50 MG; Start 07/09/18 at 20:00 Morphine Sulfate (Ms Contin (Er)) 15 mg Q8 PO Last administered on 07/18/18 14:00; Admin Dose 15 MG; Start 07/11/18 at 22:00 Hydroxyzine HCl (Atarax) 25 mg TID PO Last administered on 07/18/18 13:27; Admin Dose 25 MG; Start 07/16/18 at 13:00 Hydrocortisone (Hydrocortisone 1% Oint) 1 applic BID TOP Last administered on 07/18/18 08:40; Admin Dose 1 APPLIC; Start 07/17/18 at 21:00 KILO LONG Jul 18, 2018 16:48
[2018-07-18] MEDS ORDERED: HEPARIN (100 UNITS/ML) 5 ML SYG CATHETER ONE (17:30)
[2018-07-18] MEDS: DIPHENHYDRAMINE 50 MG CAP PO PRN (18:26)
[2018-07-18 20:30] VITALS: BP 95/60; PULSE 89; RESP 18
[2018-07-19 01:27] VITALS: BP 105/67; PULSE 89; RESP 19
[2018-07-19] MEDS: DIPHENHYDRAMINE 50 MG CAP PO PRN (04:14)
[2018-07-19] MEDS: morphine (ER) 15 MG TAB PO SCH ×3 (05:50→21:51)
[2018-07-19 07:24] VITALS: BP 106/64; PULSE 84; RESP 18
[2018-07-19] MEDS: FLUDROCORTISONE 0.1 MG TAB PO SCH (08:27)
[2018-07-19] MEDS: DULOXETINE 30 MG CAP DR PO SCH (08:28)
[2018-07-19] MEDS: hydrOXYzine HCL 25 MG TAB PO SCH ×3 (08:28→21:51)
[2018-07-19] MEDS: LEVETIRACETAM 500 MG TAB PO SCH ×2 (08:28→21:51)
[2018-07-19] MEDS: FAMOTIDINE 20 MG TAB PO SCH (08:28)
[2018-07-19] MEDS: SENNA TAB PO SCH ×2 (08:28→21:51)
[2018-07-19] MEDS: NYSTATIN 30 GM POWDER BTL TOP SCH ×2 (08:29→21:52)
[2018-07-19] MEDS: HYDROCORTISONE 1% 28.35 GM OINT TOP SCH ×2 (08:29→21:51)
[2018-07-19 14:52] VITALS: BP 102/60; PULSE 86; RESP 18
--- NOTE | 2018-07-19 16:43 | PN ---
Date/Time of Note Date/Time of Note DATE: 07/19/18 TIME: 16:40 Assessment/Plan VTE Prophylaxis Risk score (from Ns)>0 risk: 6 SCD applied (from Ns): Yes Pharmacological prophylaxis: NA/contraindicated Pharm contraindication: other Lines/Catheters IV Catheter Type (from Nrsg): Port a Cath Urinary Cath still in place: No Assessment/Plan Hospital Course 1. Abdominal pain secondary to cellulitis and skin excoriation from leakage of ileostomy site-improved Wound care nurse consultation appreciated, ostomy has been adjusted and wound care recommendations will be followed Plan is for DC to nursing facility Ileostomy was just done 2 weeks ago prior to this admission and family was unable to manage at home Pain control Atarax and Benadryl for itching, hydrocortisone ointment also added as itching persist 2. UTI secondary to chronic Avalos catheter Status post Rocephin 3. History of ovarian cancer status post SLIME/BSO Patient was receiving chemotherapy but was stopped after she had a stroke Family would like to continue chemotherapy and will follow-up with outpatient oncologist 4. History of CVA No acute issues 5. 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 Transaminitis Monitor 7. Normocytic anemia likely secondary chronic disease monitor Prophylaxis: No Lovenox or heparin secondary to skin excoriations in the abdomen DC planning: Awaiting placement in care home facility likely tomorrow Result Diagram: 07/16/18 0823 07/16/18 0823 Subjective 24 Hr Interval Summary Constitutional: no complaints Exam/Review of Systems Exam Vitals Vital Signs Date Temp Pulse Resp B/P (MAP) Pulse Ox O2 O2 Flow FiO2 Time Delivery Rate 07/19/18 97.8 86 18 102/60 90 Room Air 14:52 (74) Intake and Output 07/18/18 07/18/18 07/19/18 1414:59 22:59 06:59 IntakeIntake Total 400 ml 400 ml 420 ml OutputOutput Total 200 ml 300 ml BalanceBalance 400 ml 200 ml 120 ml Constitutional: alert Respiratory: clear to auscultation Cardiovascular: regular rate and rhythm Gastrointestinal: soft; No distended Musculoskeletal: nl extremities to inspection Medications Medication Current Medications IV Flush (NS 3 ml) 3 ml PER PROTOCOL IV Last administered on 07/15/18 09:44; Admin Dose 3 ML; Start 07/06/18 at 16:00 Ondansetron HCl (Zofran Inj) 4 mg Q6H PRN IV NAUSEA/VOMITING; Start 07/06/18 at 16:00 Acetaminophen (Tylenol Tab) 650 mg Q6H PRN PO .PAIN 1-3 OR TEMP Last administered on 07/09/18at 12:02; Admin Dose 650 MG; Start 07/06/18 at 16:00 Acetaminophen/ Hydrocodone Bitart ([place] (5/325)) 1 tab Q6H PRN PO .MOD PAIN 4- 6 Last administered on 07/18/18 00:17; Admin Dose 1 TAB; Start 07/06/18 at 16:00 Morphine Sulfate (morphine) 2 mg Q4H PRN IV .SEVERE PAIN 7-10 Last administered on 07/16/18 10:15; Admin Dose 2 MG; Start 07/06/18 at 16:00 Docusate Sodium (Colace) 100 mg Q12H PRN PO .CONSTIPATION; Start 07/06/18 at 16:00 Zolpidem Tartrate (Ambien) 5 mg QHS PRN PO .INSOMNIA; Start 07/06/18 at 16:00 Bisacodyl (Dulcolax Supp) 10 mg Q72H PRN [place] NEEDED; Start 07/06/18 at 16:00 Duloxetine HCl (Cymbalta) 30 mg DAILY PO Last administered on 07/19/18 08:28; Admin Dose 30 MG; Start 07/07/18 at 09:00 Famotidine (Pepcid) 40 mg DAILY PO Last administered on 07/19/18 08:28; Admin Dose 40 MG; Start 07/07/18 at 09:00 Fludrocortisone Acetate (Florinef) 0.1 mg DAILY PO Last administered on 07/19/18at 08:27; Admin Dose 0.1 MG; Start 07/07/18 at 09:00 Hyoscyamine (Levsin (Sl)) 0.125 mg Q4H PRN [place] NEEDED; Start 07/06/18 at 16:00 Levetiracetam (Keppra) 500 mg Q12 PO Last administered on 07/19/18 08:28; Admin Dose 500 MG; Start 07/06/18 at 17:00 Lorazepam (Ativan) 0.5 mg Q4H PRN PO ANXIETY Last administered on 07/09/18 12:02; Admin Dose 0.5 MG; Start 07/06/18 at 16:00 Ondansetron HCl (Zofran Tab) 4 mg Q4H PRN PO NAUSEA AND/OR VOMITING; Start 07/06/18 at 16:00 Senna (Senokot) 1 tab BID PO Last administered on 07/19/18 08:28; Admin Dose 1 TAB; Start 07/06/18 at 21:00 Nystatin (Nystatin Powder) 1 applic BID TOP Last administered on 07/19/18 08:29; Admin Dose 1 APPLIC; Start 07/06/18 at 21:00 Diphenhydramine HCl (Benadryl) 50 mg Q6H PRN PO ITCHING Last administered on 07/19/18 04:14; Admin Dose 50 MG; Start 07/09/18 at 20:00 Morphine Sulfate (Ms Contin (Er)) 15 mg Q8 PO Last administered on 07/19/18 13:33; Admin Dose 15 MG; Start 07/11/18 at 22:00 Hydroxyzine HCl (Atarax) 25 mg TID PO Last administered on 07/19/18 13:33; Admin Dose 25 MG; Start 07/16/18 at 13:00 Hydrocortisone (Hydrocortisone 1% Oint) 1 applic BID TOP Last administered on 07/19/18 08:29; Admin Dose 1 APPLIC; Start 07/17/18 at 21:00 KILO LONG Jul 19, 2018 16:43
[2018-07-19 19:30] VITALS: BP 93/52; PULSE 72; RESP 18
[2018-07-20 02:30] VITALS: BP 106/66; PULSE 90; RESP 18
[2018-07-20] MEDS: morphine (ER) 15 MG TAB PO SCH ×3 (05:45→22:16)
[2018-07-20 08:04] VITALS: BP 93/60; PULSE 84; RESP 18
[2018-07-20] MEDS: SENNA TAB PO SCH ×2 (09:07→21:00)
[2018-07-20] MEDS: DULOXETINE 30 MG CAP DR PO SCH (09:07)
[2018-07-20] MEDS: hydrOXYzine HCL 25 MG TAB PO SCH ×3 (09:07→22:14)
[2018-07-20] MEDS: LEVETIRACETAM 500 MG TAB PO SCH ×2 (09:07→22:15)
[2018-07-20] MEDS: FLUDROCORTISONE 0.1 MG TAB PO SCH (09:08)
[2018-07-20] MEDS: FAMOTIDINE 20 MG TAB PO SCH (09:08)
[2018-07-20] MEDS: HYDROCORTISONE 1% 28.35 GM OINT TOP SCH ×2 (09:08→19:55)
[2018-07-20] MEDS: NYSTATIN 30 GM POWDER BTL TOP SCH ×2 (09:08→22:16)
[2018-07-20] MEDS: HYDROCODONE/APAP (5/325) TAB PO PRN (09:49)
--- NOTE | 2018-07-20 11:47 | PN ---
Date/Time of Note Date/Time of Note DATE: 07/20/18 TIME: 11:47 Assessment/Plan VTE Prophylaxis Risk score (from Nsg)>0 risk: 7 SCD applied (from Ns): Yes Pharmacological prophylaxis: NA/contraindicated Pharm contraindication: other Lines/Catheters IV Catheter Type (from Nrsg): Port a cath not access Urinary Cath still in place: No Assessment/Plan Hospital Course 1. Abdominal pain secondary to cellulitis and skin excoriation from leakage of ileostomy site-improved Wound care nurse consultation appreciated, ostomy has been adjusted and wound care recommendations will be followed Plan is for DC to nursing facility Ileostomy was just done 2 weeks ago prior to this admission and family was unable to manage at home Pain control Atarax and Benadryl for itching, hydrocortisone ointment also added as itching persist 2. UTI secondary to chronic Avalos catheter Status post Rocephin 3. History of ovarian cancer status post SLIME/BSO Patient was receiving chemotherapy but was stopped after she had a stroke Family would like to continue chemotherapy and will follow-up with outpatient oncologist 4. History of CVA No acute issues 5. 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 Transaminitis Monitor 7. Normocytic anemia likely secondary chronic disease monitor Prophylaxis: No Lovenox or heparin secondary to skin excoriations in the abdomen DC planning[facility] Result Diagram: 07/16/18 0823 07/16/18 0823 Subjective 24 Hr Interval Summary Constitutional: no complaints Exam/Review of Systems Exam Vitals Vital Signs Date Temp Pulse Resp B/P (MAP) Pulse Ox O2 O2 Flow FiO2 Time Delivery Rate 07/20/18 97.8 84 18 93/60 (71) 92 Room Air 08:04 Intake and Output 07/19/18 07/19/18 07/20/18 1515:00 23:00 07:00 IntakeIntake Total 300 ml OutputOutput Total 650 ml 470 ml 180 ml BalanceBalance -350 ml -470 ml -180 ml Constitutional: alert Respiratory: clear to auscultation Cardiovascular: regular rate and rhythm Gastrointestinal: soft Musculoskeletal: nl extremities to inspection Medications Medication Current Medications IV Flush (NS 3 ml) 3 ml PER PROTOCOL IV Last administered on 07/15/18 09:44; Admin Dose 3 ML; Start 07/06/18 at 16:00 Ondansetron HCl (Zofran Inj) 4 mg Q6H PRN IV NAUSEA/VOMITING; Start 07/06/18 at 16:00 Acetaminophen (Tylenol Tab) 650 mg Q6H PRN PO .PAIN 1-3 OR TEMP Last administered on 07/09/18 12:02; Admin Dose 650 MG; Start 07/06/18 at 16:00 Acetaminophen/ Hydrocodone Bitart ([place] (5/325)) 1 tab Q6H PRN PO .MOD PAIN 4- 6 Last administered on 07/20/18 09:49; Admin Dose 1 TAB; Start 07/06/18 at 16:00 Morphine Sulfate (morphine) 2 mg Q4H PRN IV .SEVERE PAIN 7-10 Last administered on 07/16/18 10:15; Admin Dose 2 MG; Start 07/06/18 at 16:00 Docusate Sodium (Colace) 100 mg Q12H PRN PO .CONSTIPATION; Start 07/06/18 at 16:00 Zolpidem Tartrate (Ambien) 5 mg QHS PRN PO .INSOMNIA; Start 07/06/18 at 16:00 Bisacodyl (Dulcolax Supp) 10 mg Q72H PRN [place] NEEDED; Start 07/06/18 at 16:00 Duloxetine HCl (Cymbalta) 30 mg DAILY PO Last administered on 07/20/18 09:07; Admin Dose 30 MG; Start 07/07/18 at 09:00 Famotidine (Pepcid) 40 mg DAILY PO Last administered on 07/20/18 09:08; Admin Dose 40 MG; Start 07/07/18 at 09:00 Fludrocortisone Acetate (Florinef) 0.1 mg DAILY PO Last administered on 07/20 09:08; Admin Dose 0.1 MG; Start 07/07/18 at 09:00 Hyoscyamine (Levsin (Sl)) 0.125 mg Q4H PRN [place] NEEDED; Start 07/06/18 at 16:00 Levetiracetam (Keppra) 500 mg Q12 PO Last administered on 07/20/18 09:07; Admin Dose 500 MG; Start 07/06/18 at 17:00 Lorazepam (Ativan) 0.5 mg Q4H PRN PO ANXIETY Last administered on 07/09/18 12:02; Admin Dose 0.5 MG; Start 07/06/18 at 16:00 Ondansetron HCl (Zofran Tab) 4 mg Q4H PRN PO NAUSEA AND/OR VOMITING; Start 07/06/18 at 16:00 Senna (Senokot) 1 tab BID PO Last administered on 07/20/18 09:07; Admin Dose 1 TAB; Start 07/06/18 at 21:00 Nystatin (Nystatin Powder) 1 applic BID TOP Last administered on 07/20/18 09:08; Admin Dose 1 APPLIC; Start 07/06/18 at 21:00 Diphenhydramine HCl (Benadryl) 50 mg Q6H PRN PO ITCHING Last administered on 07/19/18 04:14; Admin Dose 50 MG; Start 07/09/18 at 20:00 Morphine Sulfate (Ms Contin (Er)) 15 mg Q8 PO Last administered on 07/19/18 21:51; Admin Dose 15 MG; Start 07/11/18 at 22:00 Hydroxyzine HCl (Atarax) 25 mg TID PO Last administered on 07/20/18 09:07; Admin Dose 25 MG; Start 07/16/18 at 13:00 Hydrocortisone (Hydrocortisone 1% Oint) 1 applic BID TOP Last administered on 07/20/18 09:08; Admin Dose 1 APPLIC; Start 07/17/18 at 21:00 KILO LONG Jul 20, 2018 11:47
[2018-07-20 14:54] VITALS: BP 95/59; RESP 18
[2018-07-20 19:20] VITALS: BP 107/66; PULSE 97; RESP 18
[2018-07-21] MEDS: HYDROCODONE/APAP (5/325) TAB PO PRN (01:16)
[2018-07-21 01:49] VITALS: BP 94/54; PULSE 97; RESP 18
[2018-07-21] MEDS: morphine (ER) 15 MG TAB PO SCH ×2 (06:00→12:55)
[2018-07-21 07:18] VITALS: BP 92/61; PULSE 85; RESP 14
[2018-07-21] MEDS: hydrOXYzine HCL 25 MG TAB PO SCH ×2 (08:56→12:55)
[2018-07-21] MEDS: HYDROCORTISONE 1% 28.35 GM OINT TOP SCH (08:56)
[2018-07-21] MEDS: SENNA TAB PO SCH (08:56)
[2018-07-21] MEDS: FAMOTIDINE 20 MG TAB PO SCH (08:56)
[2018-07-21] MEDS: FLUDROCORTISONE 0.1 MG TAB PO SCH (08:56)
[2018-07-21] MEDS: DULOXETINE 30 MG CAP DR PO SCH (08:56)
[2018-07-21] MEDS: LEVETIRACETAM 500 MG TAB PO SCH (08:56)
[2018-07-21] MEDS: NYSTATIN 30 GM POWDER BTL TOP SCH (08:56)
--- NOTE | 2018-07-21 11:16 | PN ---
Date/Time of Note Date/Time of Note DATE: 07/21/18 TIME: 11:16 Assessment/Plan VTE Prophylaxis Risk score (from Nsg)>0 risk: 7 SCD applied (from Ns): Yes Pharmacological prophylaxis: NA/contraindicated Pharm contraindication: other Lines/Catheters IV Catheter Type (from Nrsg): Port a cath no access Urinary Cath still in place: No Assessment/Plan Hospital Course 1. Abdominal pain secondary to cellulitis and skin excoriation from leakage of ileostomy site-improved Wound care nurse consultation appreciated, ostomy has been adjusted and wound care recommendations will be followed Plan is for DC to nursing facility Ileostomy was just done 2 weeks ago prior to this admission and family was unable to manage at home Pain control Atarax and Benadryl for itching, hydrocortisone ointment also added as itching persist 2. UTI secondary to chronic Avalos catheter Status post Rocephin 3. History of ovarian cancer status post SLIME/BSO Patient was receiving chemotherapy but was stopped after she had a stroke Family would like to continue chemotherapy and will follow-up with outpatient oncologist 4. History of CVA No acute issues 5. 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 Transaminitis Monitor 7. Normocytic anemia likely secondary chronic disease monitor Prophylaxis: No Lovenox or heparin secondary to skin excoriations in the abdomen DC planning: Awaiting placement in senior care facility likely tomorrow Subjective 24 Hr Interval Summary Constitutional: no complaints Exam/Review of Systems Exam Vitals Vital Signs Date Temp Pulse Resp B/P (MAP) Pulse Ox O2 O2 Flow FiO2 Time Delivery Rate 07/21/18 98.3 85 14 92/61 (71) 96 Room Air 07:18 Intake and Output 07/20/18 07/20/18 07/21/18 1515:00 23:00 07:00 IntakeIntake Total 300 ml 300 ml 50 ml OutputOutput Total 750 ml 200 ml 260 ml BalanceBalance -450 ml 100 ml -210 ml Constitutional: alert, oriented Respiratory: clear to auscultation Cardiovascular: regular rate and rhythm Gastrointestinal: soft; No distended Musculoskeletal: nl extremities to inspection Medications Medication Current Medications IV Flush (NS 3 ml) 3 ml PER PROTOCOL IV Last administered on 07/15/18 09:44; Admin Dose 3 ML; Start 07/06/18 at 16:00 Ondansetron HCl (Zofran Inj) 4 mg Q6H PRN IV NAUSEA/VOMITING; Start 07/06/18 at 16:00 Acetaminophen (Tylenol Tab) 650 mg Q6H PRN PO .PAIN 1-3 OR TEMP Last administered on 07/09/18 12:02; Admin Dose 650 MG; Start 07/06/18 at 16:00 Acetaminophen/ Hydrocodone Bitart ([place] (5/325)) 1 tab Q6H PRN PO .MOD PAIN 4- 6 Last administered on 07/21/18 01:16; Admin Dose 1 TAB; Start 07/06/18 at 16:00 Morphine Sulfate (morphine) 2 mg Q4H PRN IV .SEVERE PAIN 7-10 Last administered on 07/16/18 10:15; Admin Dose 2 MG; Start 07/06/18 at 16:00 Docusate Sodium (Colace) 100 mg Q12H PRN PO .CONSTIPATION; Start 07/06/18 at 16:00 Zolpidem Tartrate (Ambien) 5 mg QHS PRN PO .INSOMNIA; Start 07/06/18 at 16:00 Bisacodyl (Dulcolax Supp) 10 mg Q72H PRN [place] NEEDED; Start 07/06/18 at 16:00 Duloxetine HCl (Cymbalta) 30 mg DAILY PO Last administered on 07/21/18 08:56; Admin Dose 30 MG; Start 07/07/18 at 09:00 Famotidine (Pepcid) 40 mg DAILY PO Last administered on 07/21/18 08:56; Admin Dose 40 MG; Start 07/07/18 at 09:00 Fludrocortisone Acetate (Florinef) 0.1 mg DAILY PO Last administered on 07/21/18 08:56; Admin Dose 0.1 MG; Start 07/07/18 at 09:00 Hyoscyamine (Levsin (Sl)) 0.125 mg Q4H PRN [place] NEEDED; Start 07/06/18 at 16:00 Levetiracetam (Keppra) 500 mg Q12 PO Last administered on 07/21/18 08:56; Admin Dose 500 MG; Start 07/06/18 at 17:00 Lorazepam (Ativan) 0.5 mg Q4H PRN PO ANXIETY Last administered on 07/09/18 12:02; Admin Dose 0.5 MG; Start 07/06/18 at 16:00 Ondansetron HCl (Zofran Tab) 4 mg Q4H PRN PO NAUSEA AND/OR VOMITING; Start 07/06/18 at 16:00 Senna (Senokot) 1 tab BID PO Last administered on 07/21/18 08:56; Admin Dose 1 TAB; Start 07/06/18 at 21:00 Nystatin (Nystatin Powder) 1 applic BID TOP Last administered on 07/21/18 08:56; Admin Dose 1 APPLIC; Start 07/06/18 at 21:00 Diphenhydramine HCl (Benadryl) 50 mg Q6H PRN PO ITCHING Last administered on 07/19/18 04:14; Admin Dose 50 MG; Start 07/09/18 at 20:00 Morphine Sulfate (Ms Contin (Er)) 15 mg Q8 PO Last administered on 07/21/18 06:00; Admin Dose 15 MG; Start 07/11/18 at 22:00 Hydroxyzine HCl (Atarax) 25 mg TID PO Last administered on 07/21/18 08:56; Admin Dose 25 MG; Start 07/16/18 at 13:00 Hydrocortisone (Hydrocortisone 1% Oint) 1 applic BID TOP Last administered on 07/21/18 08:56; Admin Dose 1 APPLIC; Start 07/17/18 at 21:00 KILO LONG Jul 21, 2018 11:16
--- NOTE | 2018-07-21 11:49 | DS ---
Date/Time of Note Date/Time of Note DATE: 07/21/18 TIME: 11:46 Discharge Summary Admission/Discharge Info Admit Date/Time Jul 07, 2018 at 11:13 Discharge Date/Time July 21, 2018 Discharge Diagnosis 1. Abdominal pain secondary to cellulitis and skin excoriation from leakage of ileostomy site-improved Wound care nurse consultation appreciated, ostomy has been adjusted and wound care recommendations will be followed DC to nursing facility Ileostomy was just done 2 weeks ago prior to this admission and family was u nable to manage at home Pain control Benadryl for itching, hydrocortisone ointment also added as itching persist 2. UTI secondary to chronic Avalos catheter Status post Rocephin 3. History of ovarian cancer status post SLIME/BSO Patient was receiving chemotherapy but was stopped after she had a stroke Family would like to continue chemotherapy and will follow-up with outpatient on cologist 4. History of CVA No acute issues 5. 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 Transaminitis Monitor 7. Normocytic anemia likely secondary chronic disease monitor Patient Condition: Good Hospital Course Patient is a 47-year-old female with history of ovarian cancer status post SLIME/BSO as well as chemotherapy which was stopped after patient had a CVA. 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 Patient was recently discharged home with hospice care but patient had significant leakage around the ostomy with excoriation of the skin. Patient was brought in after patient reported significant pain of the skin. Patient does have a chronic Avalos catheter UA is positive and received a course of antibiotics. Patient was seen by wound care team and ostomy leak was fixed with appropriate ostomy bag. Patient did improvement of wound thanks to the help of the wound care team, patient did have itching on the abdominal wound which improved with Benadryl and hydrocortisone cream. Family did not feel that they could care for patient due to poor functional status and heel caser arrange for placement in a group home facility. On the day of discharge patient's vitals, labs and physical exam are stable. Home Meds Active Scripts [Nystatin Powder] 1 APPLIC POWDER No Conflict Check, 1 APPLIC TOP BID, #1 TUB Prov:KILO LONG 07/18/18 Hydrocortisone Acetate (ANTI-ITCH) 28 Gm Oint...g., 1 APPLIC TOP BID, #1 TUB Prov:KILO LONG 07/18/18 Diphenhydramine Hcl* (Benadryl*) 50 Mg Cap, 50 MG PO Q6H PRN for ITCHING, #30 CAP Prov:KILO LONG 07/18/18 Reported Medications Ondansetron Hcl* (Zofran*) 4 Mg Tab, 4 MG PO Q4H PRN for NAUSEA AND OR VOMITING, TAB 07/06/18 Bisacodyl* (Bisacodyl*) 10 Mg Supp, 10 MG SD Q72H PRN for NEEDED, SUPP 07/06/18 Morphine Sulfate* (Morphine* Liq) 10 Mg/0.5 Ml Disp.syrin, 0.25 ML SL Q4H PRN for NEEDED, ML 07/06/18 Hydrocodone/Acetaminophen ([place] 5-325 Tablet) 1 Each Tablet, 1 EACH PO Q4H PRN for NEEDED, TAB 07/06/18 Famotidine* (Famotidine*) 40 Mg Tablet, 40 MG PO Q7AM, #30 TAB 07/06/18 Fludrocortisone* (Fludrocortisone*) 0.1 Mg Tablet, 0.1 MG PO Q 9AM, TAB 07/06/18 Sennosides* (Senna Lax*) 8.6 Mg Tablet, 1 TAB PO BID, TAB Q 9AM & 9PM 07/06/18 Duloxetine Hcl* (Duloxetine Hcl*) 30 Mg Capsule.dr, 30 MG PO Q 9AM, #30 CAP 07/06/18 Levetiracetam* (Levetiracetam*) 500 Mg Tablet, 500 MG PO Q12H, TAB Q 9-AM & 9-PM 07/06/18 Hyoscyamine Sulfate* (Hyoscyamine Sulfate*) 0.125 Mg Tab.subl, 0.125 MG SL Q4H PRN for NEEDED, TAB 07/06/18 Lorazepam* (Ativan* Intensol) 2 Mg/Ml Soln, 0.5 MG PO Q4H PRN for ANXIETY, #1 BOTTLE 07/06/18 Acetaminophen* (Acetaminophen*) 325 Mg Tablet, 650 MG PO Q4H PRN for PAIN AND OR ELEVATED TEMP, #30 TAB 07/06/18 Follow-up Plan Follow-up with physician at the group home facility Primary Care Provider Care Physician No Primary Time spent on discharge: > 30 minutes KILO LONG Jul 21, 2018 11:49
== END 2018-07-21 13:52 | DRG 393 ==
LOC: E/R 10:42 → MS1 13:26 → INTOOBSV 13:26 → OBSVTOIN 16:25 → MS1 21:09 → OBSVTOIN 07-07 11:13
PROVIDERS: ADMIT Internal Medicine; ATTEND Internal Medicine
DX: K94.12 Enterostomy infection (principal); E43 Unspecified severe protein-calorie malnutrition; T83.511A Infection and inflammatory reaction due to indwelling urethral catheter, initial encounter; L03.311 Cellulitis of abdominal wall; C56.9 Malignant neoplasm of unspecified ovary; Z68.1 Body mass index [BMI] 19.9 or less, adult; R64 Cachexia; N39.0 Urinary tract infection, site not specified; Z66 Do not resuscitate; Z86.73 Personal history of transient ischemic attack (TIA), and cerebral infarction without residual deficits; D64.9 Anemia, unspecified; D63.8 Anemia in other chronic diseases classified elsewhere
CPT/HCPCS: 71045; 80048; 80053; 81001; 82150; 83036; 83690; 83735; 84100; 84484; 85025; 85610; 85730; 87086; 90686; 93005; 96374; 96375; 97110; 97161; 97165; 97530; 97535; 99217; G0378; J0696; J1170; J1642; J2270; J2405; J2997; J7030; J7040